=== PATIENT | female | born 1980 | race Caucasian/White ===

== ENCOUNTER 2017-01-18 03:59 | Emergency (ER) | payer OTHER ==
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
[2017-01-18 04:14] LABS: ABSOLUTE EOSINOPHILS # (AUTO) 0.2 10^3/uL (0.0-0.6); ABSOLUTE LYMPHOCYTES (AUTO) 3.2 10^3/uL (0.5-4.7); ABSOLUTE MONOCYTES (AUTO) 0.6 10^3/uL (0.1-1.4); ABSOLUTE NEUT (AUTO) 6.3 10^3/uL (1.7-8.2); BASOPHILS % (AUTO) 0.4 % (0-2); EOSINOPHILS % (AUTO) 2.2 % (0-6); HEMATOCRIT 33.2 % (36.0-47.0); HEMOGLOBIN 11.6 g/dL (12.0-15.5); HGB HCT DIFFERENCE 1.6; LYMPHOCYTES % (AUTO) 30.6 % (13-45); MEAN CORPUSCULAR HEMOGLOBIN 29.6 pg (27.0-33.4); MEAN CORPUSCULAR HGB CONC 34.9 g/dL (32.0-36.0); MEAN CORPUSCULAR VOLUME 85 fl (80-97); MONOCYTES % (AUTO) 5.8 % (3-13); RED CELL DISTRIBUTION WIDTH 17.2 % (11.5-14.0); WHITE BLOOD COUNT 10.3 10^3/uL (4.0-10.5)
[2017-01-18 04:18] LABS: APPEARANCE,URINE SLIGHTLY-CLOUDY; BILIRUBIN,URINE NEGATIVE (NEGATIVE); GLUCOSE, URINE NEGATIVE (NEGATIVE); KETONES,URINE NEGATIVE (NEGATIVE); LEUKOCYTE ESTERASE,URINE TRACE (NEGATIVE); NITRITE,URINE NEGATIVE (NEGATIVE); PROTEIN,URINE NEGATIVE (NEGATIVE); URINE SPECIFIC GRAVITY 1.008; UROBILINOGEN,URINE NEGATIVE mg/dL (<2.0)
[2017-01-18 04:32] LABS: URINE BARBITURATES SCREEN NEGATIVE; URINE METHADONE SCREEN NEGATIVE; URINE OPIATES LOW NEGATIVE; URINE PHENCYCLIDINE SCREEN NEGATIVE
[2017-01-18 04:40] LABS: ALANINE AMINOTRANSFERASE 26 U/L (9-52); ALKALINE PHOSPHATASE 65 U/L (38-126); ANION GAP 15 (5-19); ASPARTATE AMINO TRANSFERASE 21 U/L (14-36); BILIRUBIN,DIRECT 0.5 mg/dL (0.0-0.4); BILIRUBIN,TOTAL 0.5 mg/dL (0.2-1.3); BLOOD UREA NITROGEN 11 mg/dL (7-20); CALCIUM 9.7 mg/dL (8.4-10.2); CARBON DIOXIDE 19 mmol/L (22-30); CHLORIDE 108 mmol/L (98-107); CREATININE RESULT 0.68 mg/dL (0.52-1.25); GLUCOSE 78 mg/dL (75-110); POTASSIUM 4.2 mmol/L (3.6-5.0); SODIUM 142.3 mmol/L (137-145)
[2017-01-18 04:44] LABS: ALCOHOL < 10 mg/dL (NONE DETECTED)
--- NOTE | 2017-01-18 09:41 | ER Document Report ---
Doctor's Note Notes: 01/18/17 09:40 The patient is currently calm and ambulating around outside her room and on the phone. She is not in any distress at this time. Her vital signs have been stable and her labs were relatively good. She has no symptoms of UTI. We are awaiting psychiatric evaluation.
[2017-01-18 12:57] VITALS: BP 127/81
--- NOTE | 2017-01-18 15:38 | EKG REPORT ---
SEVERITY:- ABNORMAL ECG - SINUS RHYTHM INCOMPLETE RIGHT BUNDLE BRANCH BLOCK : Confirmed by: Bernard Macedo 18-Jan-2017 15:37:13
== END 2017-01-18 12:57 | disposition home or self-care (01) ==
LOC: ER 03:59
DX: F14.90 Cocaine use, unspecified, uncomplicated (principal); F15.10 Other stimulant abuse, uncomplicated; F31.9 Bipolar disorder, unspecified; F12.90 Cannabis use, unspecified, uncomplicated; F17.200 Nicotine dependence, unspecified, uncomplicated
CPT/HCPCS: 36415; 80053; 80307; 81001; 84703; 85025; 93005; 93010; 99284

== ENCOUNTER 2017-02-18 10:57 | Inpatient (IN) | payer OTHER ==
[2017-02-18] MEDS ORDERED: ETOMIDATE INJ/PF 20 MG/10 ML SDV IV ONE (11:15)
[2017-02-18] MEDS ORDERED: ROCURONIUM BROMIDE INJ 50 MG/5 ML VIAL IV ONE ×2 (11:15→15:41)
[2017-02-18 11:18] LABS: ABSOLUTE LYMPHOCYTES (AUTO) 2.2 10^3/uL (0.5-4.7); ABSOLUTE MONOCYTES (AUTO) 0.5 10^3/uL (0.1-1.4); ABSOLUTE NEUT (AUTO) 10.5 10^3/uL (1.7-8.2); BASOPHILS % (AUTO) 0.3 % (0-2); EOSINOPHILS % (AUTO) 0.1 % (0-6); HEMATOCRIT 38.1 % (36.0-47.0); HEMOGLOBIN 12.9 g/dL (12.0-15.5); HGB HCT DIFFERENCE 0.6; LYMPHOCYTES % (AUTO) 16.5 % (13-45); MEAN CORPUSCULAR HEMOGLOBIN 29.2 pg (27.0-33.4); MEAN CORPUSCULAR HGB CONC 33.8 g/dL (32.0-36.0); MEAN CORPUSCULAR VOLUME 86 fl (80-97); MONOCYTES % (AUTO) 3.4 % (3-13); RED BLOOD COUNT 4.42 10^6/uL (3.72-5.28); SEGMENTED NEUTROPHILS % (AUTO) 79.7 % (42-78); WHITE BLOOD COUNT 13.1 10^3/uL (4.0-10.5)
[2017-02-18] MEDS ORDERED: PROPOFOL 100 ML IV ONE ×2 (11:30→12:41)
--- NOTE | 2017-02-18 11:38 | RADIOLOGY REPORT (SQ) ---
EXAM DESCRIPTION: CHEST SINGLE VIEW COMPLETED DATE/TIME: 02/18/2017 11:27 am REASON FOR STUDY: intubated COMPARISON: 05/19/2015 NUMBER OF VIEWS: One view. TECHNIQUE: Single frontal radiographic image of the chest acquired. LIMITATIONS: Overlying support apparatus. FINDINGS: LUNGS AND PLEURA: Small left pleural effusion. No pneumothorax. MEDIASTINUM AND HEART: Within normal limits. SUPPORT DEVICES: Endotracheal tube tip between thoracic inlet and joseph. Nasogastric tube coiled in the stomach. BONY STRUCTURES: No acute findings. HARDWARE: None. OTHER: No other significant finding. IMPRESSION: Good position of support apparatus. No pneumothorax.
[2017-02-18 11:39] LABS: ALANINE AMINOTRANSFERASE 26 U/L (9-52); ALBUMIN 4.5 g/dL (3.5-5.0); ALKALINE PHOSPHATASE 92 U/L (38-126); ANION GAP 16 (5-19); ASPARTATE AMINO TRANSFERASE 25 U/L (14-36); BILIRUBIN,DIRECT 0.5 mg/dL (0.0-0.4); BILIRUBIN,TOTAL 0.6 mg/dL (0.2-1.3); BLOOD UREA NITROGEN 15 mg/dL (7-20); CALCIUM 9.8 mg/dL (8.4-10.2); CARBON DIOXIDE 17 mmol/L (22-30); CHLORIDE 108 mmol/L (98-107); CREATINE KINASE 96 U/L (30-135); CREATININE RESULT 0.84 mg/dL (0.52-1.25); GLUCOSE 203 mg/dL (75-110); SODIUM 141.3 mmol/L (137-145); TOTAL PROTEIN 8.1 g/dL (6.3-8.2)
[2017-02-18 11:48] LABS: APPEARANCE,URINE SLIGHTLY-CLOUDY; BILIRUBIN,URINE NEGATIVE (NEGATIVE); GLUCOSE, URINE 50 mg/dL (NEGATIVE); KETONES,URINE 20 mg/dL (NEGATIVE); LEUKOCYTE ESTERASE,URINE NEGATIVE (NEGATIVE); NITRITE,URINE POSITIVE (NEGATIVE); PROTEIN,URINE NEGATIVE (NEGATIVE); URINE SPECIFIC GRAVITY 1.023
[2017-02-18 11:49] LABS: CREATINE KINASE MB 1.21 ng/mL (<4.55); TROPONIN I < 0.012 ng/mL
[2017-02-18 12:02] LABS: BACTERIA,URINE 4+ /HPF; RBC,URINE 0-1 /HPF
[2017-02-18 12:05] LABS: ARTERIAL BLOOD BASE EXCESS -4.3 mmol/L; ARTERIAL BLOOD O2 SATURATION 85.8 % (94-98)
[2017-02-18 12:08] LABS: URINE BARBITURATES SCREEN NEGATIVE; URINE METHADONE SCREEN NEGATIVE; URINE OPIATES LOW NEGATIVE; URINE PHENCYCLIDINE SCREEN NEGATIVE
[2017-02-18 12:14] LABS: ALCOHOL < 10 mg/dL (NONE DETECTED)
[2017-02-18] MEDS ORDERED: ACETAMINOPHEN 650 MG SUPP.RECT PR PRN (12:17)
[2017-02-18] MEDS ORDERED: LEVALBUTEROL HCL NEB 1.25 MG/3 ML AMPUL NEB PRN (12:17)
[2017-02-18] MEDS ORDERED: NORMAL SALINE 1000 ML 1,000 ML IV PRN (12:17)
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
[2017-02-18] MEDS ORDERED: MIDAZOLAM HCL 100 ML IV PRN (12:26)
[2017-02-18] MEDS ORDERED: PHARMACY COMMUNICATION ORDER MC NR (12:30)
[2017-02-18] MEDS: POTASSI CL 20 MEQ/50 ML RIDER 20 MEQ/50 ML RTUPB IV SCH ×2 (12:40→15:26)
[2017-02-18] MEDS ORDERED: FENTANYL CITRATE INJ/PF 100 MCG/2 ML AMPUL IV PRN (12:46)
[2017-02-18] MEDS ORDERED: ATROPINE SULFATE INJ 1 MG/1 ML VIAL IV PRN ×2 (12:46→14:33)
[2017-02-18] MEDS ORDERED: MIDAZOLAM 2 MG/2 ML INJ ONE (12:56)
--- NOTE | 2017-02-18 13:02 | EKG REPORT ---
SEVERITY:- ABNORMAL ECG - SINUS TACHYCARDIA IVCD, NONSPECIFIC : Confirmed by: Bernard Macedo 18-Feb-2017 13:02:25
[2017-02-18] MEDS ORDERED: MIDAZOLAM 2 MG/2 ML INJ IV ONE (13:24)
[2017-02-18] MEDS ORDERED: ATROPINE SULFATE INJ 1 MG/1 ML VIAL IV ONE (13:27)
[2017-02-18] MEDS ORDERED: IPRATROPIUM BROMIDE 0.02% NEB 0.5 MG/2.5 ML AMPUL NEB ONE ×2 (13:30→14:15)
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
[2017-02-18] MEDS ORDERED: GLUCAGON,HUMAN RECOMB 1 MG INJ IM PRN (13:42)
[2017-02-18] MEDS ORDERED: DEXTROSE 40% GEL 15 GM TUBE PO PRN ×2 (13:42)
[2017-02-18] MEDS ORDERED: DEXTROSE 50%-WATER 25 GM/50 ML DISP.SYRIN IV PRN ×2 (13:42)
[2017-02-18] MEDS ORDERED: NORMAL SALINE 1000 ML 1,000 ML IV ONE (13:55)
[2017-02-18] MEDS ORDERED: HEPARIN SOD (PORCINE) 5,000 UNIT/ML 1 ML SYRINGE SUBCUT SCH (14:00)
[2017-02-18] MEDS: LORAZEPAM INJ 2 MG/1 ML VIAL IV PRN ×2 (14:16→16:36)
--- NOTE | 2017-02-18 14:20 | RADIOLOGY REPORT (SQ) ---
EXAM DESCRIPTION: KUB/ABDOMEN (SINGLE VIEW) COMPLETED DATE/TIME: 02/18/2017 1:01 pm REASON FOR STUDY: Check Placement of NG Tube COMPARISON: None. NUMBER OF VIEWS: One view. TECHNIQUE: Supine radiographic image of the abdomen acquired. LIMITATIONS: None. FINDINGS: There is a nasogastric tube present, with the tip in the stomach fundus. Lap band prosthesis at the GE junction. BOWEL GAS PATTERN: Normal bowel gas pattern. No dilated loops. Large amount of stool in the rectosig moid. CALCIFICATIONS: No suspicious calcifications. SOFT TISSUES: No gross mass or suggestion of organomegaly. HARDWARE: As above. Deshpande catheter in the bladder. BONES: No acute fracture. No worrisome bone lesions. OTHER: No other significant finding. IMPRESSION: Large amount of stool in the rectosigmoid. Otherwise unremarkable bowel gas pattern. Nasogastric tube tip and side port in the stomach fundus. Lap band prosthesis GE junction. Deshpande catheter in the bladder. TECHNICAL DOCUMENTATION: JOB ID: [id number] [employer]- All Rights Reserved
[2017-02-18 15:08] LABS: ARTERIAL BLOOD BASE EXCESS -2.7 mmol/L; ARTERIAL BLOOD O2 SATURATION 99.6 % (94-98)
[2017-02-18] MEDS ORDERED: NORMAL SALINE IV PRN ×2 (15:17→17:31)
[2017-02-18] MEDS ORDERED: [UNRECOGNIZED DRUG - OTHER] IV PRN (15:17)
[2017-02-18] MEDS ORDERED: POTASSIUM CHLORIDE 20 MEQ/15 ML UDCUP ONE (15:22)
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
--- NOTE | 2017-02-18 15:45 | PDOC TRANSFER SUMMARY ---
General Admission Date/PCP: 02/18/17 12:17 Admission Date: 02/18/17 Transfer Date: 02/18/17 Accepting Facility: [facility] Accepting Physician: Dr. Chapman Resuscitation Status: Do Not Resuscitate - Transfer Diagnosis (1) Poisoning by organophosphate Is this a current diagnosis for this admission?: Yes (2) Toxic effect of organophosphate and carbamate Is this a current diagnosis for this admission?: Yes (3) Respiratory failure Is this a current diagnosis for this admission?: Yes (4) Suicide attempt Is this a current diagnosis for this admission?: Yes (5) Encephalopathy Is this a current diagnosis for this admission?: Yes (6) Foot drop, left Is this a current diagnosis for this admission?: Yes (7) SIRS (systemic inflammatory response syndrome) Is this a current diagnosis for this admission?: Yes (8) Cocaine abuse Is this a current diagnosis for this admission?: Yes (9) Marijuana abuse Is this a current diagnosis for this admission?: Yes (10) Tobacco abuse Is this a current diagnosis for this admission?: Yes (11) Obesity (BMI 30.0-34.9) Is this a current diagnosis for this admission?: Yes (12) Status post gastric lap band Is this a current diagnosis for this admission?: Yes (13) Hypokalemia Is this a current diagnosis for this admission?: Yes (14) DVT prophylaxis Is this a current diagnosis for this admission?: Yes (15) GI prophylaxis Is this a current diagnosis for this admission?: Yes - Transfer Medications Home Medications: Dextroamphetamine/Amphetamine [Adderall XR 20 mg Capsule] 1 mg PO DAILY Lorazepam [Lorazepam] 1 mg PO PRN PRN 04/21/16 Quetiapine Fumarate [Seroquel Xr] 400 mg PO DAILY 04/21/16 Transfer Medications: Current Medications Acetaminophen (Tylenol 650 Mg Supp) 650 mg KS Q4HP PRN PRN Reason: PAIN/FEVER Stop: 03/20/17 12:16 Atropine Sulfate (Atropine Inj 1 Mg/1 Ml Vial) 1 mg IV Q5MP PRN PRN Reason: secretions Stop: 03/20/17 14:31 Dextrose (Dextrose Inj 50% Syringe (25 Gm/50 Ml)) 12.5 gm IV PRN PRN; Protocol PRN Reason: FOR BG 50-69 IN ALERT PATIENT Stop: 03/20/17 13:41 Dextrose (Dextrose Inj 50% Syringe (25 Gm/50 Ml)) 25 gm IV PRN PRN PRN Reason: Protocol Stop: 03/20/17 13:41 Diazepam (Valium 5 Mg Tablet) 10 mg NG Q6 ERICH Stop: 02/25/17 17:59 Fentanyl Citrate (Sublimaze Inj/Pf 100 Mcg/2 Ml Ampule) 50 mcg IV Q4HP PRN Stop: 02/25/17 12:45 Last Admin: 02/18/17 14:17 Dose: 50 mcg Glucagon (Glucagen Inj 1 Mg Vial) 1 mg IM PRN PRN; Protocol PRN Reason: Evaluate for BG < 70 Stop: 03/20/17 13:41 Glucose (Glutose 40% Gel 15 Gm Tube) 15 gm PO PRN PRN; Protocol PRN Reason: FOR BG 50-69 IN ALERT PATIENT Stop: 03/20/17 13:41 Glucose (Glutose 40% Gel 15 Gm Tube) 30 gm PO PRN PRN; Protocol PRN Reason: FOR BG < 50 IN ALERT PATIENT Stop: 03/20/17 13:41 Heparin Sodium (Porcine) (Heparin Inj 5,000 Units/Ml 1 Ml Syringe) 5,000 unit SUBCUT Q8 [facility] Stop: 03/20/17 13:59 Last Admin: 02/18/17 15:27 Dose: 5,000 unit Potassium Chloride/Water (Potassium Chloride Jay 20 Meq/50 Ml) 20 meq in 50 mls @ 25 mls/hr IV Q2H [facility] Stop: 02/18/17 16:08 Last Admin: 02/18/17 15:26 Dose: 50 ml Sodium Chloride (Nacl 0.9% 1000 Ml Iv Soln) 1,000 mls @ 150 mls/hr IV CONTINUOUS PRN PRN Reason: THIS MED IS NOT "PRN" Stop: 03/20/17 12:16 Last Admin: 02/18/17 15:28 Dose: 1,000 ml Propofol (Diprivan Rtu 1000 Mg/100 Ml Inf.Bottle) 100 mls @ 0 mls/hr IV CONTINUOUS PRN; Protocol; Titrate PRN Reason: THIS MED IS NOT "PRN" Stop: 03/20/17 12:24 Midazolam HCl (Versed Rtu 50 Mg/100 Ml Premix Bag) 100 mls @ 0 mls/hr IV CONTINUOUS PRN; Protocol; Titrate PRN Reason: THIS MED IS NOT "PRN" Stop: 02/25/17 12:25 Last Admin: 02/18/17 14:17 Dose: 100 ml Pralidoxime Chloride 1.5 gm/ (Sodium Chloride) 100 mls @ 300 mls/hr IV NOW ONE Stop: 02/18/17 16:19 Pralidoxime Chloride 4,500 gm/ (Sodium Chloride) 250 mls @ 72 mls/hr IV .CONTINOUS PRN PRN Reason: THIS MED IS NOT "PRN" Stop: 03/20/17 15:16 Ipratropium Rule (Atrovent 0.02% Neb 0.5 Mg/2.5 Ml Ampul) 0.5 mg NEB RTQ6 ERICH Stop: 03/20/17 17:59 Lansoprazole (Prevacid 15 Mg Odt Tablet) 15 mg NG BID@0600,1700 [facility] Stop: 03/20/17 16:59 Levalbuterol HCl (Xopenex Neb 1.25 Mg/3 Ml Ampul) 1.25 mg NEB RTQ2HP PRN Stop: 03/20/17 12:16 Last Admin: 02/18/17 14:13 Dose: 1.25 mg Lorazepam (Ativan Inj 2 Mg/1 Ml Vial) 2 mg IV Q2HP PRN PRN Reason: anxiety, seizure Stop: 02/25/17 12:43 Last Admin: 02/18/17 14:16 Dose: 2 mg Pharmacy Profile Note (Medication Communication Order) 1 each .NOTICE NR Stop: 03/20/17 12:29 Sodium Chloride (Saline Flush 2.5 Ml Monoject Prefil Syrin) 2.5 ml IV Q8 [facility] Stop: 03/20/17 13:59 Last Admin: 02/18/17 15:25 Dose: 2.5 ml - Allergies Allergies/Adverse Reactions: amoxicillin trihydrate [From Augmentin] Allergy (Intermediate, Verified 04:49) Potassium Clavulanate * [From Augmentin] Allergy (Intermediate, Verified 04:49) Hospital Course Hospital Course: Patient is a 36yo CF with a hx of polysubstance abuse and prior suicide attempt , apparently self ingested Temik. Given atropine by EMS. Patient found to have anticholinergic side effects and uneven respirations and intubated in the ED with Etomidate and Rocuronium. Patient admitted to hospitalist service. Patient found to have facial fasciculations and increased lacrimation and drooling as well as airway secretions. Patient started on 2-MALIKA and atropine. Patient IVC'd for safety. Correcting electrolytes and pending recheck. Unfortunately, we do not have enough 2-MALIKA in house to support patient on a continuous infusion after loading dose. Patient accepted to [facility]. Appreciate their help. Physical Exam Vital Signs: Temp Pulse Resp BP Pulse Ox 94.1 F L 116 H 18 169/106 H 96 02/18/17 12:13 02/18/17 14:20 02/18/17 14:20 02/18/17 12:05 02/18/17 13:55 General appearance: PRESENT: well-developed, well-nourished, other - intubated Head exam: PRESENT: atraumatic, normocephalic Eye exam: PRESENT: conjunctiva pink, EOMI, PERRLA - meiosis. ABSENT: scleral icterus Ear exam: PRESENT: normal external ear exam Mouth exam: PRESENT: moist, tongue midline Neck exam: ABSENT: JVD, lymphadenopathy, thyromegaly, tracheal deviation Respiratory exam: PRESENT: clear to auscultation [place], unlabored. ABSENT: rales , rhonchi, wheezes Cardiovascular exam: PRESENT: RRR, +S1, +S2, tachycardia. ABSENT: diastolic murmur, rubs, systolic murmur Pulses: PRESENT: normal dorsalis pedis pul Vascular exam: PRESENT: normal capillary refill GI/Abdominal exam: PRESENT: hyperactive bowel sounds, soft. ABSENT: distended, guarding, mass, Mendoza's sign, organolmegaly, rebound, tenderness Rectal exam: PRESENT: deferred Extremities exam: PRESENT: full ROM. ABSENT: calf tenderness, clubbing, pedal edema Neurological exam: PRESENT: other - intubated and sedated Psychiatric exam: PRESENT: other - intubated and sedated Skin exam: PRESENT: dry, intact, warm. ABSENT: cyanosis, rash Results Laboratory Results: 02/18/17 02/18/17 02/18/17 14:43 14:52 14:52 Carbonic Acid 0.98 L HCO3/H2CO3 Ratio 21:1 ABG pH 7.43 ABG pCO2 32.4 L ABG pO2 253.9 H ABG HCO3 20.9 ABG O2 Saturation 99.6 H ABG Base Excess -2.7 FiO2 65% Phosphorus 3.1 Magnesium 1.9 Impressions: Chest X-Ray 02/18/17 11:13 IMPRESSION: Good position of support apparatus. No pneumothorax. KUB X-Ray 02/18/17 12:18 IMPRESSION: Large amount of stool in the rectosigmoid. Otherwise unremarkable bowel gas pattern. Nasogastric tube tip and side port in the stomach fundus. Lap band prosthesis GE junction. Deshpaned catheter in the bladder. Plan Time Spent: Greater than 30 Minutes
[2017-02-18] MEDS ORDERED: [UNRECOGNIZED DRUG - OTHER] IV ONE (16:00)
[2017-02-18] MEDS ORDERED: NORMAL SALINE IV ONE (16:00)
[2017-02-18] MEDS: PROPOFOL 100 ML IV PRN ×2 (16:01→17:10)
[2017-02-18 16:53] LABS: ANION GAP 10 (5-19); BLOOD UREA NITROGEN 16 mg/dL (7-20); CALCIUM 8.7 mg/dL (8.4-10.2); CARBON DIOXIDE 19 mmol/L (22-30); CHLORIDE 112 mmol/L (98-107); CREATINE KINASE 69 U/L (30-135); CREATININE RESULT 0.64 mg/dL (0.52-1.25); GLUCOSE 94 mg/dL (75-110); POTASSIUM 3.7 mmol/L (3.6-5.0)
[2017-02-18] MEDS ORDERED: LANSOPRAZOLE 15 MG TAB.RAP.DR NG SCH (17:00)
[2017-02-18 17:09] LABS: TROPONIN I < 0.012 ng/mL
[2017-02-18 17:14] VITALS: BP 148/89
[2017-02-18] MEDS ORDERED: [UNRECOGNIZED DRUG - OTHER] IV PRN (17:31)
[2017-02-18] MEDS ORDERED: IPRATROPIUM BROMIDE 0.02% NEB 0.5 MG/2.5 ML AMPUL NEB SCH ×2 (18:00→20:00)
[2017-02-18] MEDS ORDERED: DIAZEPAM 5 MG TABLET NG SCH ×2 (18:00)
--- NOTE | 2017-02-19 14:29 | PDOC CONSULTATION ---
Consultation Consult Date: 02/19/17 Attending physician:: CANDE BEGMU Consult reason:: resp failure/posioning-drug od History of Present Illness Admission Date/PCP: 02/18/17 12:41 History of Present Illness: RHETT John AVENDANO is a 36 year old female 36-year-old female presented to the emergency room obtunded and unresponsive subsequently intubated unable to protect airway she has had multiple presentations for suicide attempts and suicidal ideation however this time she was reported to take a bottle of rat poison (that was not Coumadin). She is currently intubated and sedated and not arousable no rash or purpura noted is a history of smoking but the amount of which I cannot document at this time. Past Medical History Pulmonary Medical History: Reports: Chronic Obstructive Pulmonary Disease (COPD) , Pneumonia Psychiatric Medical History: Reports: Attention Deficit Hyperactivity Disorder, Bipolar Disorder, Depression, Substance Abuse, Tobacco Dependency Past Surgical History Past Surgical History: Reports: Orthopedic Surgery - kimberlyn in left foot Social History Information Source: [facility] Records Lives with: Spouse/Significant other Smoking Status: Unknown if Ever Smoked Drugs: Cocaine Family History Family History: Hyperlipidemia, Malignancy Parental Family History Reviewed: No Children Family History Reviewed: No Sibling(s) Family History Reviewed.: No Medication/Allergy Home Medications: Dextroamphetamine/Amphetamine [Adderall XR 20 mg Capsule] 1 mg PO DAILY Lorazepam [Lorazepam] 1 mg PO PRN PRN 04/21/16 Quetiapine Fumarate [Seroquel Xr] 400 mg PO DAILY 04/21/16 Allergies/Adverse Reactions: amoxicillin trihydrate [From Augmentin] Allergy (Intermediate, Verified 04:49) Potassium Clavulanate * [From Augmentin] Allergy (Intermediate, Verified 04:49) Review of Systems ROS unobtainable: Due to endotracheal tube Physical Exam Vital Signs: Temp Pulse Resp BP Pulse Ox 94.1 F L 13 169/106 H 93 02/18/17 12:13 02/18/17 12:05 02/18/17 12:05 02/18/17 12:05 General appearance: PRESENT: no acute distress, disheveled, well-developed, well -nourished Head exam: PRESENT: atraumatic, normocephalic Eye exam: PRESENT: conjunctiva pale Mouth exam: PRESENT: dry mucosa, neck supple, tongue midline, other - 7.5 ET tube placed 22 inches at the lip Neck exam: ABSENT: carotid bruit, JVD, lymphadenopathy, thyromegaly Respiratory exam: PRESENT: decreased breath sounds, prolonged expiratory phas, rhonchi, symmetrical, unlabored. ABSENT: crackles, rales, retraction, stridor, tachypnea, wheezes Cardiovascular exam: PRESENT: RRR, +S1, +S2. ABSENT: systolic murmur Pulses: PRESENT: normal radial pulses GI/Abdominal exam: PRESENT: normal bowel sounds, soft. ABSENT: distended, guarding, mass, organolmegaly, rebound, tenderness Torso Front/Back Image: 1 - 2cmx1.5cmx0.5cm crater Rectal exam: PRESENT: deferred, other Gentrourinary exam: PRESENT: indwelling catheter Musculoskeletal exam: PRESENT: normal inspection Neurological exam: ABSENT: alert, awake, oriented to person, oriented to place, oriented to time, oriented to situation Skin exam: PRESENT: dry, warm Results Impressions: Chest X-Ray 02/18/17 11:13 IMPRESSION: Good position of support apparatus. No pneumothorax. Assessment & Plan - Diagnosis (1) Poisoning by organophosphate Qualifiers: Encounter type: initial encounter Injury intent: intentional self-harm Qualified Code(s): T60.0X2A - Toxic effect of organophosphate and carbamate insecticides, intentional self-harm, initial encounter Is this a current diagnosis for this admission?: Yes Plan: to center for treatment([facility]) (2) Respiratory failure Qualifiers: Chronicity: acute Is this a current diagnosis for this admission?: Yes Plan: hypoxic/with metabolic acdosis (3) Tobacco abuse Is this a current diagnosis for this admission?: Yes - Time Critical Time spent with patient: 35 or more minutes - 55 min
== END 2017-02-18 17:31 | disposition short-term general hospital (02) | DRG 208 ==
LOC: ER 10:57 → ICU 12:17 → EH 12:41 → UNDOADMIN 12:41 → ICU 13:30 → EH 13:30
PROVIDERS: ADMIT Family Medicine; ATTEND Family Medicine
PROC: 0BH17EZ Insertion of Endotracheal Airway into Trachea, Via Natural or Artificial Opening (ICD-10-PCS; principal; 2017-02-18)
PROC: 5A1935Z Respiratory Ventilation, Less than 24 Consecutive Hours (ICD-10-PCS; 2017-02-18)
DX: J96.00 Acute respiratory failure, unspecified whether with hypoxia or hypercapnia (principal); G92 Toxic encephalopathy; T60.0X2A Toxic effect of organophosphate and carbamate insecticides, intentional self-harm, initial encounter; Z66 Do not resuscitate; E87.6 Hypokalemia; F32.9 Major depressive disorder, single episode, unspecified; F90.9 Attention-deficit hyperactivity disorder, unspecified type; J44.9 Chronic obstructive pulmonary disease, unspecified; E66.9 Obesity, unspecified; R25.3 Fasciculation; M21.372 Foot drop, left foot; F14.10 Cocaine abuse, uncomplicated; F12.10 Cannabis abuse, uncomplicated; F17.210 Nicotine dependence, cigarettes, uncomplicated; Y92.9 Unspecified place or not applicable; Z68.31 Body mass index [BMI] 31.0-31.9, adult; Z75.1 Person awaiting admission to adequate facility elsewhere
CPT/HCPCS: 36415; 71010; 74000; 80048; 80053; 80307; 81001; 81025; 82550; 82553; 82803; 83036; 83735; 84100; 84484; 85025; 87040; 87086; 87088; 87186; 93005; 93010; 94002; 99291; 99292; J0461; J1644; J2060; J2250; J2704; J2730; J3010; J3480; J3490; J7030; J7050

== ENCOUNTER 2018-03-21 22:35 | Emergency (ER) | payer OTHER, MEDICAID ==
[2018-03-21 23:30] LABS: ABSOLUTE EOSINOPHILS # (AUTO) 0.1 10^3/uL (0.0-0.6); ABSOLUTE LYMPHOCYTES (AUTO) 2.3 10^3/uL (0.5-4.7); ABSOLUTE MONOCYTES (AUTO) 0.6 10^3/uL (0.1-1.4); ABSOLUTE NEUT (AUTO) 4.3 10^3/uL (1.7-8.2); BASOPHILS % (AUTO) 0.5 % (0-2); EOSINOPHILS % (AUTO) 0.8 % (0-6); HEMATOCRIT 38.1 % (36.0-47.0); HEMOGLOBIN 12.8 g/dL (12.0-15.5); LYMPHOCYTES % (AUTO) 31.2 % (13-45); MEAN CORPUSCULAR HEMOGLOBIN 30.1 pg (27.0-33.4); MEAN CORPUSCULAR HGB CONC 33.7 g/dL (32.0-36.0); MEAN CORPUSCULAR VOLUME 89 fl (80-97); MONOCYTES % (AUTO) 8.8 % (3-13); PLATELET COUNT 260 10^3/uL (150-450); RED BLOOD COUNT 4.27 10^6/uL (3.72-5.28); RED CELL DISTRIBUTION WIDTH 16.8 % (11.5-14.0); SEGMENTED NEUTROPHILS % (AUTO) 58.7 % (42-78); TOTAL CELLS COUNTED % (AUTO) 100 %; WHITE BLOOD COUNT 7.3 10^3/uL (4.0-10.5)
[2018-03-21 23:49] LABS: ALANINE AMINOTRANSFERASE 14 U/L (9-52); ALBUMIN 4.4 g/dL (3.5-5.0); ALKALINE PHOSPHATASE 70 U/L (38-126); ANION GAP 16 (5-19); ASPARTATE AMINO TRANSFERASE 22 U/L (14-36); BILIRUBIN,DIRECT 0.3 mg/dL (0.0-0.4); BILIRUBIN,TOTAL 0.5 mg/dL (0.2-1.3); BLOOD UREA NITROGEN 10 mg/dL (7-20); CALCIUM 9.6 mg/dL (8.4-10.2); CARBON DIOXIDE 23 mmol/L (22-30); CHLORIDE 105 mmol/L (98-107); GLUCOSE 115 mg/dL (75-110); POTASSIUM 4.4 mmol/L (3.6-5.0); SODIUM 143.8 mmol/L (137-145); TOTAL PROTEIN 7.6 g/dL (6.3-8.2)
[2018-03-21 23:51] LABS: ACETAMINOPHEN < 10 ug/mL (10-30); ALCOHOL < 10 mg/dL (NONE DETECTED); SALICYLATE < 1.0 mg/dL (2.0-20.0)
--- NOTE | 2018-03-22 01:10 | RADIOLOGY REPORT (SQ) ---
EXAM DESCRIPTION: CT HEAD WITHOUT IV CONTRAST COMPLETED DATE/TME: 03/21/2018 23:15 CLINICAL HISTORY: 37 years, Female, AMS COMPARISON: Prior CT brain 05/19/2015 TECHNIQUE: 199 Images stored on PACS. All CT scanners at this facility use dose modulation, iterative reconstruction, and/or weight based dosing when appropriate to reduce radiation dose to as low as reasonably achievable (ALARA). [facility]: Dose Right [facility]: CareDose [facility]: Dose Right [facility]: Teradose 4D [facility]: [employer] LIMITATIONS: None. FINDINGS: The globes are intact. The paranasal sinuses and mastoid air cells are unremarkable. No displaced or depressed skull fracture. No intra or extra-axial hemorrhage. CT is limited for evaluation of acute infarct. No CT evidence for large or territorial acute infarct. No mass or midline shift. IMPRESSION: Negative exam TECHNICAL DOCUMENTATION: Quality ID # [id number]: Final reports with documentation of one or more dose reduction techniques (e.g., Automated exposure control, adjustment of the mA and/or kV according to patient size, use of iterative reconstruction technique) 2010 [employer]- All Rights Reserved
--- NOTE | 2018-03-22 02:42 | ER Document Report ---
ED General - General Chief Complaint: Probable Seizure Stated Complaint: ALTERED MENTAL STATUS Time Seen by Provider: 03/21/18 23:08 Notes: Patient is a 37-year-old female who is brought in by ambulance due to being found poorly responsive and then was very combative and a months requiring for sedation. Upon my evaluation the patient she is absolutely somnolent from the medication. She is able to talk some. She says that she feels fine and wants to be left alone. She denies any wanting to hurt herself. She will not tell me what potential drug she took. Per medics reported concern of alcohol use. Personal Property Appraiser reports that she also did cocaine. Patient herself cannot tell me what she took. Patient denies any pain at this time and has no further concerns. TRAVEL OUTSIDE OF THE [place] IN LAST 30 DAYS: No - Related Data Allergies/Adverse Reactions: amoxicillin trihydrate [From Augmentin] Allergy (Intermediate, Verified 04:49) Potassium Clavulanate * [From Augmentin] Allergy (Intermediate, Verified 04:49) Past Medical History - Social History Smoking Status: Current Every Day Smoker Chew tobacco use (# tins/day): No Frequency of alcohol use: Heavy Drug Abuse: Cocaine, Marijuana Family History: Hyperlipidemia, Malignancy Patient has suicidal ideation: No Patient has homicidal ideation: No Pulmonary Medical History: Reports: Hx COPD, Hx Pneumonia Renal/ Medical History: Reports: Hx Ovarian Cysts. Denies: Hx Peritoneal Dialysis Musculoskeletal Medical History: Reports Hx Musculoskeletal Deformity, Reports Hx Musculoskeletal Trauma Psychiatric Medical History: Reports: Hx Anxiety, Hx Attention Deficit Hyperactivity Disorder, Hx Bipolar Disorder, Hx Depression Traumatic Medical History: Reports: Hx Fractures, Hx Spine Fracture Past Surgical History: Reports: Hx Genitourinary Surgery - lap band 2009, Hx Orthopedic Surgery - kimberlyn in left foot - Immunizations Immunizations up to date: Yes Hx Diphtheria, Pertussis, Tetanus Vaccination: Yes - 2009 Review of Systems - Review of Systems Notes: My Normal Review Basic REVIEW OF SYSTEMS: CONSTITUTIONAL : Denies fever, chills, or sweats. Denies recent illness. EENT: Denies eye, ear, throat, or mouth pain or symptoms. Denies nasal or sinus congestion. CARDIOVASCULAR: Denies chest pain. RESPIRATORY: Denies cough, cold, or chest congestion. Denies shortness of breath, difficulty breathing, or wheezing. GASTROINTESTINAL: Denies abdominal pain. Denies nausea, vomiting, or diarrhe MUSCULOSKELETAL: Denies neck or back pain or joint pain or swelling. SKIN: Denies rash or skin lesions. NEUROLOGICAL: Poorly responsive by boyfriend. PSYCHIATRIC: Denies anxiety or stress or depression. ALL OTHER SYSTEMS REVIEWED AND NEGATIVE. Physical Exam - Vital signs Vitals: Temp Pulse Resp BP Pulse Ox 97.7 F 82 14 103/71 97 03/21/18 23:28 03/21/18 23:28 03/21/18 23:28 03/21/18 23:28 03/21/18 23:28 - Notes Notes: General Appearance: Well nourished, sleeping but easily arousable. When patient is awoken she does slur her words some but her speech is comfortable., no acute distress, no obvious discomfort. Vitals: reviewed, See vital signs table. Head: no swelling or tenderness to the head Eyes: PERRL, EOMI, Conjuctiva clear Mouth: No decreasd moisture Throat: No tonsillar inflammation, No airway obstruction, No lymphadenopathy Neck: Supple, no neck tenderness, no step-offs or deformities to palpation. Back: No tenderness palpation of thoracic or lumbar spine. No step-offs or deformities. Lungs: No wheezing, No rales, No rhonci, No accessory muscle use, good air exchange bilaterally. Heart: Normal rate, Regular rythm, No murmur, no rub Abdomen: Normal BS, soft, No rigidity, No abdominal tenderness, No guarding, no rebound, no abdominal masses, no organomegaly Extremities: strength 5/5 in all extremities, good pulses in all extremities, no swelling or tenderness in the extremities, no edema. Skin: warm, dry, appropriate color, no rash Neuro: speech is garbled, oriented x 2, somnolent affect, patient will answer some questions. Facial movements are symmetric. She does move all extremities on her own but her coordination is a little bit off likely due to intoxication. Course - Re-evaluation Re-evalutation: 03/22/18 02:42 I reevaluate the patient. She is currently sleeping but easily arousable. She says she feels well. I would let her continue to rest and sleep and will reevaluate her again later. 03/22/18 07:30 Patient is awake alert and eating breakfast. She says she feels well and wants to go home. She does not remember what happened last night. I informed her that she likely had a large amount of alcohol as well as possibly some other drugs. Patient says she does not member doing this but does not deny it is a possibility either. Patient has no further concerns and wants to be discharged home. Patient says she will call ride to come pick her up. Patient will be discharged home as she requests. Dictation of this chart was performed using voice recognition software; therefore, there may be some unintended grammatical errors. - Vital Signs Vital signs: Temp Pulse Resp BP Pulse Ox 97.2 F 80 18 124/78 99 03/22/18 04:32 03/22/18 04:32 03/22/18 04:32 03/22/18 04:32 03/22/18 04:32 - Laboratory Result Diagrams: 03/21/18 22:40 03/21/18 22:40 Laboratory results interpreted by me: 03/21/18 03/21/18 22:40 22:40 RDW 16.8 H Glucose 115 H Salicylates < 1.0 L Acetaminophen < 10 L
[2018-03-22 07:46] VITALS: BP 132/82
--- NOTE | 2018-03-22 12:40 | EKG REPORT ---
SEVERITY:- ABNORMAL ECG - SINUS RHYTHM RBBB AND LPFB : Confirmed by: Sabrina Finley MD 22-Mar-2018 12:39:14
== END 2018-03-22 07:49 | disposition home or self-care (01) ==
LOC: ER 22:35
DX: R41.82 Altered mental status, unspecified (principal); F17.200 Nicotine dependence, unspecified, uncomplicated; J44.9 Chronic obstructive pulmonary disease, unspecified; Z88.0 Allergy status to penicillin
CPT/HCPCS: 36415; 70450; 80053; 80307; 84703; 85025; 93005; 93010; 99285

== ENCOUNTER 2018-08-30 17:22 | Inpatient (IN) | payer OTHER, MEDICAID ==
[2018-08-30] MEDS ORDERED: NORMAL SALINE 1000 ML 1,000 ML IV ONE (17:35)
[2018-08-30 18:13] LABS: ABSOLUTE LYMPHOCYTES (AUTO) 0.9 10^3/uL (0.5-4.7); ABSOLUTE MONOCYTES (AUTO) 0.5 10^3/uL (0.1-1.4); ABSOLUTE NEUT (AUTO) 12.2 10^3/uL (1.7-8.2); BASOPHILS % (AUTO) 0.2 % (0-2); HEMATOCRIT 37.9 % (36.0-47.0); HEMOGLOBIN 12.7 g/dL (12.0-15.5); LYMPHOCYTES % (AUTO) 6.4 % (13-45); MEAN CORPUSCULAR HEMOGLOBIN 29.4 pg (27.0-33.4); MEAN CORPUSCULAR HGB CONC 33.4 g/dL (32.0-36.0); MEAN CORPUSCULAR VOLUME 88 fl (80-97); PLATELET COUNT 215 10^3/uL (150-450); SEGMENTED NEUTROPHILS % (AUTO) 89.4 % (42-78); TOTAL CELLS COUNTED % (AUTO) 100 %; WHITE BLOOD COUNT 13.6 10^3/uL (4.0-10.5)
[2018-08-30 18:22] LABS: APPEARANCE,URINE CLOUDY; BILIRUBIN,URINE NEGATIVE (NEGATIVE); GLUCOSE, URINE NEGATIVE (NEGATIVE); KETONES,URINE 20 mg/dL (NEGATIVE); LEUKOCYTE ESTERASE,URINE NEGATIVE (NEGATIVE); NITRITE,URINE POSITIVE (NEGATIVE); PROTEIN,URINE 30 mg/dL (NEGATIVE); UROBILINOGEN,URINE NEGATIVE mg/dL (<2.0)
[2018-08-30 18:23] LABS: COLOR,URINE YELLOW; INTERNATIONAL RATION (INR) 1.01; PROTHROMBIN TIME 13.8 SEC (11.4-15.4)
[2018-08-30 18:24] LABS: PARTIAL THROMBOPLASTIN TIME 32.1 SEC (23.5-35.8)
[2018-08-30 18:24] LABS: ARTERIAL BLOOD FIO2 ROOM AIR; ARTERIAL BLOOD H2CO3 0.92 mmol/L (1.05-1.35); ARTERIAL BLOOD HCO3 21.7 mmol/L (20-24); ARTERIAL BLOOD O2 SATURATION 96.1 % (94-98); ARTERIAL BLOOD PCO2 30.6 mmHg (35-45); ARTERIAL BLOOD PH 7.47 (7.35-7.45); ARTERIAL BLOOD PO2 76.1 mmHg (80-100); ARTERIAL BLOOD TOTAL CO2 22.7 mmol/L (21-25)
[2018-08-30 18:29] LABS: ALANINE AMINOTRANSFERASE 20 U/L (9-52); ALBUMIN 3.5 g/dL (3.5-5.0); ALKALINE PHOSPHATASE 61 U/L (38-126); ANION GAP 9 (5-19); ASPARTATE AMINO TRANSFERASE 18 U/L (14-36); BILIRUBIN,DIRECT 0.3 mg/dL (0.0-0.4); BILIRUBIN,TOTAL 0.4 mg/dL (0.2-1.3); BLOOD UREA NITROGEN 12 mg/dL (7-20); CALCIUM 9.1 mg/dL (8.4-10.2); CARBON DIOXIDE 21 mmol/L (22-30); CHLORIDE 107 mmol/L (98-107); CREATINE KINASE 74 U/L (30-135); GLUCOSE 103 mg/dL (75-110); POTASSIUM 3.7 mmol/L (3.6-5.0); SODIUM 137.2 mmol/L (137-145); TOTAL PROTEIN 6.5 g/dL (6.3-8.2)
[2018-08-30 18:31] LABS: ALCOHOL < 10 mg/dL (NONE DETECTED)
[2018-08-30 18:37] LABS: URINE AMPHETAMINES SCREEN NEGATIVE; URINE BARBITURATES SCREEN NEGATIVE; URINE BENZODIAZEPINES SCREEN NEGATIVE; URINE COCAINE SCREEN UNCONFIRMED POSITIVE; URINE MARIJUANA (THC) SCREEN UNCONFIRMED POSITIVE; URINE METHADONE SCREEN NEGATIVE; URINE PHENCYCLIDINE SCREEN NEGATIVE
[2018-08-30 18:40] LABS: CREATINE KINASE MB 0.91 ng/mL (<4.55)
[2018-08-30 18:41] LABS: TROPONIN I < 0.012 ng/mL
--- NOTE | 2018-08-30 19:28 | RADIOLOGY REPORT (SQ) ---
EXAM DESCRIPTION: CHEST SINGLE VIEW COMPLETED DATE/TIME: 08/30/2018 7:19 pm REASON FOR STUDY: altered mental status COMPARISON: 05/19/2015 EXAM PARAMETERS: NUMBER OF VIEWS: One view. TECHNIQUE: Single frontal radiographic view of the chest acquired. RADIATION DOSE: NA LIMITATIONS: None. FINDINGS: LUNGS AND PLEURA: Bibasilar parenchymal opacities right greater than left. No pneumothora x. MEDIASTINUM AND HILAR STRUCTURES: No masses. Contour normal. HEART AND VASCULAR STRUCTURES: Heart normal in size. Normal vasculature. BONES: No acute findings. HARDWARE: None in the chest. OTHER: No other significant finding. IMPRESSION: Bibasilar pneumonitis. TECHNICAL DOCUMENTATION: JOB ID: [id number] [employer]- All Rights Reserved Reading location - IP/workstation name: [email or web address]
[2018-08-30] MEDS ORDERED: CEFTRIAXONE 1 GM/D5W RTU 1 GM/50 ML RTUPB IV ONE (20:29)
--- NOTE | 2018-08-30 21:02 | ER Document Report ---
ED General - General Chief Complaint: Overdose Stated Complaint: POSSIBLE OVERDOSEE Time Seen by Provider: 08/30/18 17:33 TRAVEL OUTSIDE OF THE [place] IN LAST 30 DAYS: No - HPI Notes: Patient presents emergency department for evaluation via EMS. She is brought in for evaluation of potential overdose. She does have a history of multi-drug overdoses. She was brought in with propanolol and doxepin. There is some concern she took too much of it. We are unsure as to whether or not this was intentional. She has had multiple overdose attempts in the past. I can obtain no meaningful history from the patient herself. - Related Data Allergies/Adverse Reactions: amoxicillin trihydrate [From Augmentin] Allergy (Intermediate, Verified 01/18/17 04:49) Potassium Clavulanate * [From Augmentin] Allergy (Intermediate, Verified 01/18/17 04:49) Past Medical History - General Information source: Emergency [facility] Personnel - Social History Smoking Status: Unknown if Ever Smoked Family History: Hyperlipidemia, Malignancy Patient has suicidal ideation: Yes Patient has homicidal ideation: No Pulmonary Medical History: Reports: Hx COPD, Hx Pneumonia Renal/ Medical History: Reports: Hx Ovarian Cysts. Denies: Hx Peritoneal Dialysis Musculoskeletal Medical History: Reports Hx Musculoskeletal Deformity, Reports Hx Musculoskeletal Trauma Psychiatric Medical History: Reports: Hx Anxiety, Hx Attention Deficit Hyperactivity Disorder, Hx Bipolar Disorder, Hx Depression Traumatic Medical History: Reports: Hx Fractures, Hx Spine Fracture Past Surgical History: Reports: Hx Genitourinary Surgery - lap band 2009, Hx Orthopedic Surgery - kimberlyn in left foot - Immunizations Immunizations up to date: Yes Hx Diphtheria, Pertussis, Tetanus Vaccination: Yes - 2009 Review of Systems - Review of Systems -: Yes ROS unobtainable due to patient's medical condition Physical Exam - Vital signs Vitals: Resp BP Pulse Ox 20 120/81 98 08/30/18 17:30 08/30/18 17:30 08/30/18 17:30 - Notes Notes: Vital signs reviewed and as charted. Patient is drowsy but arousable. She intermittently screams obscenities. It is normocephalic and appears atraumatic. Pupils are 4 mm, round, sluggish but reactive. Oral mucosa is moist. Neck is supple, no meningismus. Heart is regular rate and rhythm, lungs are clear to auscultate bilaterally. Abdomen is soft, nontender, normoactive bowel sounds. Skin is warm and dry. Patient moves all 4 extremities spontaneously. GCS of 11. Course - Re-evaluation Re-evalutation: 08/30/18 21:05 Patient presents to the emergency department for evaluation. I did review this patient's chart. She has a history of multiple attempts at overdose, both intentional and unintentional. She was placed on a monitoring engineer, oxygen per nasal cannula. Laboratory investigations and imaging was ordered as above. As I do not have a clear time for ingestion, decision was made against any sort of gastric decontamination. Patient was maintained here and remained stable. Currently respiratory rate is 16 and nonlabored. She is 99%. Heart rate is in the 90s, blood pressure 125/86. She does however, remain drowsy. Laboratory investigations were positive for marijuana and cocaine. There is some concern as to whether or not she did overdose on a tricyclic medication. Her QRS duration is prolonged, but she does have a baseline bundle branch block. There is not a significant change in her QRS duration when compared to prior study. ABG revealed an alkalosis. Unfortunately, she is not back to her baseline. I am unsure as to whether or not she overdosed on other medications. Will contact medicine for further evaluation and care. 08/30/18 21:[address] Kee, he will accept the patient for further care. Patient will be admitted IM. Secondary to my strong suspicion that this was a self- inflicted, intentional overdose, mental cause harm, I will go ahead and fill out IVC paperwork. Patient will be admitted to IM for further care. - Vital Signs Vital signs: Temp Pulse Resp BP Pulse Ox 96.4 F L 19 125/86 H 98 08/30/18 21:01 08/30/18 21:01 08/30/18 21:01 08/30/18 21:01 - Laboratory Result Diagrams: 08/30/18 17:50 08/30/18 17:50 Laboratory results interpreted by me: 08/30/18 08/30/18 08/30/18 17:50 17:50 17:50 WBC 13.6 H RDW 17.0 H Seg Neutrophils % 89.4 H Lymphocytes % 6.4 L Absolute Neutrophils 12.2 H Carbonic Acid ABG pH ABG pCO2 ABG pO2 Carbon Dioxide 21 L Urine Protein 30 H Urine Ketones 20 H Urine Blood SMALL H Urine Nitrite POSITIVE H 08/30/18 18:06 WBC RDW Seg Neutrophils % Lymphocytes % Absolute Neutrophils Carbonic Acid 0.92 L ABG pH 7.47 H ABG pCO2 30.6 L ABG pO2 76.1 L Carbon Dioxide Urine Protein Urine Ketones Urine Blood Urine Nitrite - Diagnostic Test Radiology reviewed: Reports reviewed - Bibasilar pneumonitis - EKG Interpretation by Me Additional EKG results interpreted by me: 08/30/18 21:04 Sinus rhythm with a rate of 96 bpm. Normal axis. Right bundle branch block. No acute ST changes concerning for ischemia or infarction. No significant change compared to prior study of March 2018. Discharge - Discharge Clinical Impression: Suspect TCA overdose, Intentional overdose, Polysubstance abuse, Suicide at tempt, Cocaine abuse, Marijuana abuse Condition: Stable Disposition: ADMITTED OBSERVATION Admitting Provider: [place]ango (Hospitalist) Unit Admitted: [facility]
[2018-08-30 22:00] LABS: ACETAMINOPHEN < 10 ug/mL (10-30); SALICYLATE < 1.0 mg/dL (2.0-20.0)
[2018-08-30] MEDS ORDERED: IPRATROPIUM/ALBUTEROL 0.5-2.5 MG/3 ML AMPUL NEB PRN (22:14)
[2018-08-30] MEDS ORDERED: MAG HYDROX/AL HYDROX/SIMETH SUSP 30 ML UDCUP PO PRN (22:14)
[2018-08-30] MEDS ORDERED: DIAZEPAM 5 MG TABLET PO ONE (22:30)
[2018-08-30] MEDS ORDERED: ARIPIPRAZOLE 5 MG TABLET PO ONE (23:00)
[2018-08-31 02:31] LABS: HEMATOCRIT 38.3 % (36.0-47.0); HEMOGLOBIN 12.8 g/dL (12.0-15.5); MEAN CORPUSCULAR HEMOGLOBIN 29.5 pg (27.0-33.4); MEAN CORPUSCULAR HGB CONC 33.5 g/dL (32.0-36.0); MEAN CORPUSCULAR VOLUME 88 fl (80-97); PLATELET COUNT 218 10^3/uL (150-450); RED BLOOD COUNT 4.34 10^6/uL (3.72-5.28); RED CELL DISTRIBUTION WIDTH 17.4 % (11.5-14.0); WHITE BLOOD COUNT 9.9 10^3/uL (4.0-10.5)
[2018-08-31 02:41] LABS: ALANINE AMINOTRANSFERASE 22 U/L (9-52); ALBUMIN 3.3 g/dL (3.5-5.0); ALKALINE PHOSPHATASE 48 U/L (38-126); ANION GAP 6 (5-19); ASPARTATE AMINO TRANSFERASE 18 U/L (14-36); BILIRUBIN,DIRECT 0.3 mg/dL (0.0-0.4); BILIRUBIN,TOTAL 0.5 mg/dL (0.2-1.3); BLOOD UREA NITROGEN 9 mg/dL (7-20); CALCIUM 9.1 mg/dL (8.4-10.2); CARBON DIOXIDE 23 mmol/L (22-30); CHLORIDE 110 mmol/L (98-107); GLUCOSE 87 mg/dL (75-110); POTASSIUM 3.4 mmol/L (3.6-5.0); SODIUM 139.3 mmol/L (137-145); TOTAL PROTEIN 6.2 g/dL (6.3-8.2)
[2018-08-31] MEDS ORDERED: POTASSIUM CHLORIDE 10 MEQ CAPSULE.ER PO ONE (03:55)
--- NOTE | 2018-08-31 04:10 | PDOC H&P ---
History of Present Illness Admission Date/PCP: 08/30/18 22:14 Patient complains of: Altered mental status History of Present Illness: RHETT AVENDANO is a 38 year old female with a past medical history of polysubstance abuse, depression and multiple suicide attempts. Additional history is obtained by the record as she is obtunded. Brought to the emergency room for evaluation of altered mental status and potential overdose with discrepancy of propanolol and doxepin. She is found to have respiratory alkalosis, urine drug screen positive for cocaine and marijuana. She is referred to the hospitalist for admission. Patient does not appear in any acute distress, withdrawing from noxious stimuli, moving all 4 extremities, Past Medical History Pulmonary Medical History: Reports: Chronic Obstructive Pulmonary Disease (COPD), Pneumonia Psychiatric Medical History: Reports: Attention Deficit Hyperactivity Disorder, Bipolar Disorder, Depression, Substance Abuse Past Surgical History Past Surgical History: Reports: Orthopedic Surgery - [place] in left foot Social History Information Source: Emergency Med Personnel, [facility] Records Smoking Status: Current Every Day Smoker Cigarettes Packs Per Day: 1.5 Frequency of Alcohol Use: Rare Hx Recreational Drug Use: Yes Drugs: Cocaine, Marijuana Hx Prescription Drug Abuse: Yes - Benzodiazepines - Advance Directive Resuscitation Status: Full Code Family History Family History: Hyperlipidemia, Malignancy Parental Family History Reviewed: No - Unobtainable Children Family History Reviewed: No - Unobtainable Sibling(s) Family History Reviewed.: No - Unobtainable Medication/Allergy Home Medications: Dextroamphetamine/Amphetamine [Adderall XR 20 mg Capsule] 1 mg PO DAILY 04/21/16 Lorazepam 1 mg PO PRN PRN 04/21/16 Quetiapine Fumarate [Seroquel Xr] 400 mg PO DAILY 04/21/16 Allergies/Adverse Reactions: amoxicillin trihydrate [From Augmentin] Allergy (Intermediate, Verified 01/18/17 04:49) Potassium Clavulanate * [From Augmentin] Allergy (Intermediate, Verified 01/18/17 04:49) Review of Systems ROS unobtainable: Due to mental status - Unobtainable Physical Exam Vital Signs: Temp Pulse Resp BP Pulse Ox 98.1 F 84 21 H 106/60 100 08/31/18 00:21 08/31/18 02:00 08/31/18 00:21 08/31/18 00:21 08/31/18 00:21 Intake & Output 08/29/18 08/30/18 08/31/18 11:59 11:59 11:59 Intake Total 1050 Output Total 550 Balance 500 Weight 105.2 kg General appearance: PRESENT: cooperative, disheveled, well-developed, well- nourished. ABSENT: obese, severe distress Head exam: PRESENT: atraumatic, normocephalic Eye exam: PRESENT: conjunctiva pink, EOMI, PERRLA. ABSENT: scleral icterus Ear exam: PRESENT: normal external ear exam Mouth exam: PRESENT: moist, tongue midline Neck exam: ABSENT: carotid bruit, JVD, lymphadenopathy, thyromegaly Respiratory exam: PRESENT: clear to auscultation [place], symmetrical, tachypnea. ABSENT: rales, rhonchi, wheezes Cardiovascular exam: PRESENT: RRR. ABSENT: diastolic murmur, rubs, systolic murmur Pulses: PRESENT: normal dorsalis pedis pul Vascular exam: PRESENT: normal capillary refill GI/Abdominal exam: PRESENT: normal bowel sounds, soft. ABSENT: distended, guarding, mass, organolmegaly, rebound, tenderness Rectal exam: PRESENT: deferred Extremities exam: PRESENT: full ROM. ABSENT: calf tenderness, clubbing, pedal edema Neurological exam: PRESENT: altered, CN II-XII grossly intact. ABSENT: motor sensory deficit Psychiatric exam: PRESENT: flat affect, unusual affect Skin exam: PRESENT: dry, intact, warm. ABSENT: cyanosis, rash Results Laboratory Results: 08/31/18 02:15 08/31/18 02:15 08/30/18 08/30/18 08/30/18 17:50 17:50 17:50 WBC 13.6 H RBC 4.30 Hgb 12.7 Hct 37.9 MCV 88 MCH 29.4 MCHC 33.4 RDW 17.0 H Plt Count 215 Seg Neutrophils % 89.4 H Lymphocytes % 6.4 L Monocytes % 4.0 Eosinophils % 0.0 Basophils % 0.2 Absolute Neutrophils 12.2 H Absolute Lymphocytes 0.9 Absolute Monocytes 0.5 Absolute Eosinophils 0.0 Absolute Basophils 0.0 Carbonic Acid HCO3/H2CO3 Ratio ABG pH ABG pCO2 ABG pO2 ABG HCO3 ABG O2 Saturation ABG Base Excess FiO2 Sodium 137.2 Potassium 3.7 Chloride 107 Carbon Dioxide 21 L Anion Gap 9 BUN 12 Creatinine 0.52 Est GFR ( Amer) > 60 Est GFR (Non-Af Amer) > 60 Glucose 103 Calcium 9.1 Magnesium 1.9 Total Bilirubin 0.4 AST 18 ALT 20 Alkaline Phosphatase 61 Total Protein 6.5 Albumin 3.5 TSH Urine Color YELLOW Urine Appearance CLOUDY Urine pH 6.0 Ur Specific [place] 1.020 Urine Protein 30 H Urine Glucose (UA) NEGATIVE Urine Ketones 20 H Urine Blood SMALL H Urine Nitrite POSITIVE H Ur Leukocyte Esterase NEGATIVE Urine WBC (Auto) 8 Urine RBC (Auto) 2 08/30/18 08/30/18 08/31/18 17:50 18:06 02:15 WBC 9.9 RBC 4.34 Hgb 12.8 Hct 38.3 MCV 88 MCH 29.5 MCHC 33.5 RDW 17.4 H Plt Count 218 Seg Neutrophils % Lymphocytes % Monocytes % Eosinophils % Basophils % Absolute Neutrophils Absolute Lymphocytes Absolute Monocytes Absolute Eosinophils Absolute Basophils Carbonic Acid 0.92 L HCO3/H2CO3 Ratio 23:1 ABG pH 7.47 H ABG pCO2 30.6 L ABG pO2 76.1 L ABG HCO3 21.7 ABG O2 Saturation 96.1 ABG Base Excess -1.0 FiO2 ROOM AIR Sodium Potassium Chloride Carbon Dioxide Anion Gap BUN Creatinine Est GFR ( Amer) Est GFR (Non-Af Amer) Glucose Calcium Magnesium Total Bilirubin AST ALT Alkaline Phosphatase Total Protein Albumin TSH 0.54 Urine Color Urine Appearance Urine pH Ur Specific [place] Urine Protein Urine Glucose (UA) Urine Ketones Urine Blood Urine Nitrite Ur Leukocyte Esterase Urine WBC (Auto) Urine RBC (Auto) 08/31/18 02:15 WBC RBC Hgb Hct MCV MCH MCHC RDW Plt Count Seg Neutrophils % Lymphocytes % Monocytes % Eosinophils % Basophils % Absolute Neutrophils Absolute Lymphocytes Absolute Monocytes Absolute Eosinophils Absolute Basophils Carbonic Acid HCO3/H2CO3 Ratio ABG pH ABG pCO2 ABG pO2 ABG HCO3 ABG O2 Saturation ABG Base Excess FiO2 Sodium 139.3 Potassium 3.4 L Chloride 110 H Carbon Dioxide 23 Anion Gap 6 BUN 9 Creatinine 0.56 Est GFR ( Amer) > 60 Est GFR (Non-Af Amer) > 60 Glucose 87 Calcium 9.1 Magnesium Total Bilirubin 0.5 AST 18 ALT 22 Alkaline Phosphatase 48 Total Protein 6.2 L Albumin 3.3 L TSH Urine Color Urine Appearance Urine pH Ur Specific [place] Urine Protein Urine Glucose (UA) Urine Ketones Urine Blood Urine Nitrite Ur Leukocyte Esterase Urine WBC (Auto) Urine RBC (Auto) 08/30/18 08/30/18 17:50 17:50 Creatine Kinase 74 CK-MB (CK-2) 0.91 Troponin I < 0.012 Impressions: Chest X-Ray 08/30/18 17:34 IMPRESSION: Bibasilar pneumonitis. Assessment and Plan - Diagnosis (1) Suicidal overdose Qualifiers: Encounter type: initial encounter Qualified Code(s): T50.902A - Poisoning by unspecified drugs, medicaments and biological substances, intentional self- harm, initial encounter Is this a current diagnosis for this admission?: Yes Plan: Presumed suicidal attempt by medication given history. Poison control recommends supportive care given unknown agents. IVC placed, follow-up mental health consult (2) Respiratory alkalosis Is this a current diagnosis for this admission?: Yes Plan: Secondary to hyperventilation. Sedation as needed (3) Encephalopathy acute Is this a current diagnosis for this admission?: Yes Plan: Secondary to #1, supportive care (4) Polysubstance abuse Is this a current diagnosis for this admission?: Yes Plan: Cessation counseling when alert, supportive care - Time Time Spent with patient: 35 or more minutes - Inpatient Certification Medical Necessity: Need Close Monitoring Due to Risk of Patient Decompensation
[2018-08-31] MEDS: HEPARIN SOD (PORCINE) 5,000 UNIT/ML 1 ML SYRINGE SUBCUT SCH ×3 (05:22→21:27)
[2018-08-31] MEDS: ARIPIPRAZOLE 5 MG TABLET PO SCH (09:14)
[2018-08-31] MEDS: DIAZEPAM 5 MG TABLET PO SCH ×2 (09:14→21:27)
[2018-08-31] MEDS: NICOTINE 21 MG/24 HR PATCH.TD24 TD SCH (09:14)
--- NOTE | 2018-08-31 13:11 | EKG REPORT ---
SEVERITY:- ABNORMAL ECG - SINUS RHYTHM IVCD, CONSIDER ATYPICAL RBBB : Confirmed by: Bernard Macedo 31-Aug-2018 13:11:21
--- NOTE | 2018-08-31 13:11 | EKG REPORT ---
SEVERITY:- ABNORMAL ECG - SINUS RHYTHM IVCD, CONSIDER ATYPICAL RBBB : Confirmed by: Bernard Macedo 31-Aug-2018 13:11:01
--- NOTE | 2018-08-31 13:11 | EKG REPORT ---
SEVERITY:- ABNORMAL ECG - SINUS RHYTHM RIGHT BUNDLE BRANCH BLOCK : Confirmed by: Bernard Macedo 31-Aug-2018 13:11:08
--- NOTE | 2018-08-31 14:09 | PSYCHOLOGICAL NOTE ---
Psych Note - Psych Note Date seen by psych provider: 08/31/18 Time seen by psych provider: 11:30 Psych Note: Reason for Consult: Overdose Consent permissions: Konrad Monique Patient presents to ER after possible overdose. EMS reports they were called to the home for taking "extra pills." Patient minimally engaged with clinician. She reports she took pills because she was "upset" at her boyfriend; however, patient started to mumble and it is unclear why she was upset. When asked if she wanted to when she took the pills, she reports "not really...yes and no." When asked if she is glad she survived she reports; "ya...I would be if everyone would stop bothering me every 5 minutes, but ya." Patient confirms she has medication management with [facility] and denies therapeutic services. Patient is alert and orientated to person, place, time and circumstance. Mood is irritable with congruent affect. Patient arrived after intentional overdose. Patient minimally engages with clinician. At this time the patient did not demonstrated any behaviors indicating she is responding to internal stimuli and patient does not have a history of psychosis. no medication recommendations at this time 1. 304.20 (F14.20) Cocaine Use Disorder 2. 304.30 (F12.20) Cannabis Use Disorder 3. 305.70 (F15.10) Amphetamine Use Disorder per history 4. 296.80 (F31.9) Unspecified Bipolar Disorder per history Impression\\plan: Patient is recommended for overnight mental health observation. Patient presents after intentional overdose however today discloses she did it while she was upset and overall did not want to . Patient is very irritable and only minimally engages so continued observation is recommended to ensure mental health stability and to develop plan of care. Patient will be reevaluated. Dr. Lu was consulted to care management of this patient; attending physician is agreement with recommendations and disposition.
--- NOTE | 2018-08-31 17:38 | PDOC PROGRESS REPORT ---
Subjective Progress Note for:: 08/31/18 Subjective:: RHETT AVENDANO is a 38 year old female with a past medical history of polysubstance abuse, depression and multiple suicide attempts who was admitted 08/30/18 for intentional overdose. The patient was seen on morning rounds. She is found resting in bed comfortably on room air. She was sleeping soundly but woke easily when I said her name, but groaned "what do you want? just leave me alone" when I asked how she was feeling. She then pulled the blanket over her head and refused to answer any further questions. ROS is further limited secondary to patient's participation. She appears comfortable and not in any acute distress. No concerns per nursing. Reason For Visit: AMS OD SI Physical Exam Vital Signs: Temp Pulse Resp BP Pulse Ox 97.4 F 79 16 106/58 L 97 08/31/18 15:03 08/31/18 15:03 08/31/18 15:03 08/31/18 15:03 08/31/18 15:03 Intake & Output 08/30/18 08/31/18 09/01/18 06:59 06:59 06:59 Intake Total 1050 576 Output Total 675 Balance 375 576 Weight 104.2 kg General appearance: PRESENT: no acute distress, disheveled, obese, well- developed, well-nourished. ABSENT: cooperative Head exam: PRESENT: atraumatic, normocephalic Eye exam: PRESENT: conjunctiva pink, EOMI, PERRLA. ABSENT: scleral icterus Ear exam: PRESENT: normal external ear exam Mouth exam: PRESENT: moist, tongue midline Respiratory exam: PRESENT: clear to auscultation [place], symmetrical, unlabored. ABSENT: rales, rhonchi, wheezes Cardiovascular exam: PRESENT: RRR. ABSENT: diastolic murmur, rubs, systolic murmur Vascular exam: PRESENT: normal capillary refill Rectal exam: PRESENT: deferred Extremities exam: PRESENT: full ROM. ABSENT: calf tenderness, clubbing, pedal edema Neurological exam: PRESENT: CN II-XII grossly intact, other - Arousable. ABSENT: motor sensory deficit Psychiatric exam: PRESENT: flat affect Skin exam: PRESENT: dry, intact, warm. ABSENT: cyanosis, rash Additional comments: Exam limited secondary to patient participation. Results Laboratory Results: 08/31/18 02:15 08/31/18 02:15 08/30/18 08/30/18 08/30/18 17:50 17:50 17:50 WBC 13.6 H RBC 4.30 Hgb 12.7 Hct 37.9 MCV 88 MCH 29.4 MCHC 33.4 RDW 17.0 H Plt Count 215 Seg Neutrophils % 89.4 H Lymphocytes % 6.4 L Monocytes % 4.0 Eosinophils % 0.0 Basophils % 0.2 Absolute Neutrophils 12.2 H Absolute Lymphocytes 0.9 Absolute Monocytes 0.5 Absolute Eosinophils 0.0 Absolute Basophils 0.0 Carbonic Acid HCO3/H2CO3 Ratio ABG pH ABG pCO2 ABG pO2 ABG HCO3 ABG O2 Saturation ABG Base Excess FiO2 Sodium 137.2 Potassium 3.7 Chloride 107 Carbon Dioxide 21 L Anion Gap 9 BUN 12 Creatinine 0.52 Est GFR ( Amer) > 60 Est GFR (Non-Af Amer) > 60 Glucose 103 Calcium 9.1 Magnesium 1.9 Total Bilirubin 0.4 AST 18 ALT 20 Alkaline Phosphatase 61 Total Protein 6.5 Albumin 3.5 TSH Urine Color YELLOW Urine Appearance CLOUDY Urine pH 6.0 Ur Specific [place] 1.020 Urine Protein 30 H Urine Glucose (UA) NEGATIVE Urine Ketones 20 H Urine Blood SMALL H Urine Nitrite POSITIVE H Ur Leukocyte Esterase NEGATIVE Urine WBC (Auto) 8 Urine RBC (Auto) 2 08/30/18 08/30/18 08/31/18 17:50 18:06 02:15 WBC 9.9 RBC 4.34 Hgb 12.8 Hct 38.3 MCV 88 MCH 29.5 MCHC 33.5 RDW 17.4 H Plt Count 218 Seg Neutrophils % Lymphocytes % Monocytes % Eosinophils % Basophils % Absolute Neutrophils Absolute Lymphocytes Absolute Monocytes Absolute Eosinophils Absolute Basophils Carbonic Acid 0.92 L HCO3/H2CO3 Ratio 23:1 ABG pH 7.47 H ABG pCO2 30.6 L ABG pO2 76.1 L ABG HCO3 21.7 ABG O2 Saturation 96.1 ABG Base Excess -1.0 FiO2 ROOM AIR Sodium Potassium Chloride Carbon Dioxide Anion Gap BUN Creatinine Est GFR ( Amer) Est GFR (Non-Af Amer) Glucose Calcium Magnesium Total Bilirubin AST ALT Alkaline Phosphatase Total Protein Albumin TSH 0.54 Urine Color Urine Appearance Urine pH Ur Specific [place] Urine Protein Urine Glucose (UA) Urine Ketones Urine Blood Urine Nitrite Ur Leukocyte Esterase Urine WBC (Auto) Urine RBC (Auto) 08/31/18 02:15 WBC RBC Hgb Hct MCV MCH MCHC RDW Plt Count Seg Neutrophils % Lymphocytes % Monocytes % Eosinophils % Basophils % Absolute Neutrophils Absolute Lymphocytes Absolute Monocytes Absolute Eosinophils Absolute Basophils Carbonic Acid HCO3/H2CO3 Ratio ABG pH ABG pCO2 ABG pO2 ABG HCO3 ABG O2 Saturation ABG Base Excess FiO2 Sodium 139.3 Potassium 3.4 L Chloride 110 H Carbon Dioxide 23 Anion Gap 6 BUN 9 Creatinine 0.56 Est GFR ( Amer) > 60 Est GFR (Non-Af Amer) > 60 Glucose 87 Calcium 9.1 Magnesium Total Bilirubin 0.5 AST 18 ALT 22 Alkaline Phosphatase 48 Total Protein 6.2 L Albumin 3.3 L TSH Urine Color Urine Appearance Urine pH Ur Specific [place] Urine Protein Urine Glucose (UA) Urine Ketones Urine Blood Urine Nitrite Ur Leukocyte Esterase Urine WBC (Auto) Urine RBC (Auto) 08/30/18 08/30/18 17:50 17:50 Creatine Kinase 74 CK-MB (CK-2) 0.91 Troponin I < 0.012 Impressions: Chest X-Ray 08/30/18 17:34 IMPRESSION: Bibasilar pneumonitis. Assessment and Plan - Diagnosis (1) Suicidal ideation Is this a current diagnosis for this admission?: Yes Plan: The patient presented with altered mental status and known intentional overdose of Doxepin with reported intent of trying to sleep. Patient is placed in IVC status. Mental health services consulted. Continue the patient's home dose of Abilify. One-to-one sitter for safety. (2) Tricyclic antidepressant overdose of undetermined intent Qualifiers: Encounter type: initial encounter Qualified Code(s): T43.014A - Poisoning by tricyclic antidepressants, undetermined, initial encounter Is this a current diagnosis for this admission?: Yes Plan: Patient took an unknown quantity of doxepin. Poison control was contacted; recommend supportive care. Patient is now on IVC status. Follow-up mental health consultation. Gentle IV fluids. Serial EKGs to trend QTc interval. (3) Encephalopathy acute Is this a current diagnosis for this admission?: Yes Plan: Secondary to #1, supportive care (4) Polysubstance abuse Is this a current diagnosis for this admission?: Yes Plan: Cessation counseling when alert, supportive care (5) DVT prophylaxis Is this a current diagnosis for this admission?: Yes Plan: Heparin (6) Tobacco dependence Is this a current diagnosis for this admission?: Yes Plan: Cessation counseling when alert, nicotine replacement therapies provided. - Time Time Spent with patient: 15-24 minutes Medications reviewed and adjusted accordingly: Yes Within: within 24 hours - once cleared by psych services; disposition per their recommendation
[2018-08-31] MEDS ORDERED: CEFTRIAXONE 1 GM/D5W RTU 1 GM/50 ML RTUPB IV SCH (18:00)
[2018-08-31] MEDS ORDERED: CEFTRIAXONE 1 GM/D5W RTU 1 GM/50 ML RTUPB IV ONE (18:17)
[2018-09-01] MEDS: HEPARIN SOD (PORCINE) 5,000 UNIT/ML 1 ML SYRINGE SUBCUT SCH (06:06)
[2018-09-01] MEDS: NICOTINE 21 MG/24 HR PATCH.TD24 TD SCH (09:43)
[2018-09-01] MEDS: ARIPIPRAZOLE 5 MG TABLET PO SCH (09:43)
[2018-09-01] MEDS: DIAZEPAM 5 MG TABLET PO SCH (09:43)
--- NOTE | 2018-09-01 10:20 | PDOC DISCHARGE SUMMARY ---
General - Admit/Disc Date/PCP Admission Date/Primary Care Provider: 08/30/18 22:14 Discharge Date: 09/01/18 - Discharge Diagnosis (1) Suicidal ideation Is this a current diagnosis for this admission?: Yes Summary: The patient presented with altered mental status and known intentional overdose of Doxepin with reported intent of trying to sleep. Patient was placed in IVC status. Mental health services consulted and subsequently recommended rescinding IVC status. No new medication recommendations per mental health services. They do advised that the patient would benefit from CBT therapy. On day of discharge, the patient states that she is feeling well; denies current thoughts of suicidal ideation. She is advises that she is going to discharge to home in the care of her parents who will be here to pick her up after mandaeism today. She agrees that she would benefit from therapy services and states her intent to discuss this with her mental health provider at her outpatient follow-up. She is discharged home in stable condition and recommended to follow-up as described as above, otherwise return to the emergency department immediately for any concerning symptoms. (2) Tricyclic antidepressant overdose of undetermined intent Is this a current diagnosis for this admission?: Yes Summary: Patient took an unknown quantity of doxepin. Poison control was contacted; recommend supportive care. Patient was placed in IVC status with mental health consultation; received gentle IV fluids and serial EKGs to trend QTc interval which has returned to normal. (3) Encephalopathy acute Is this a current diagnosis for this admission?: Yes Summary: Resolved; secondary to #2. (4) Polysubstance abuse Is this a current diagnosis for this admission?: Yes Summary: Cessation counseling provided; recommended patient follow-up with [facility] and see to discuss need for therapy and substance abuse counseling services. (5) Tobacco dependence Is this a current diagnosis for this admission?: Yes Summary: Smoking cessation encouraged; NicoDerm prescription transmitted to patient's outpatient pharmacy. (6) DVT prophylaxis Is this a current diagnosis for this admission?: Yes - Additional Information Resuscitation Status: Full Code Discharge Diet: Regular Discharge Activity: Activity As Tolerated, Balance Activity w/Rest, Slowly Increase Activity Prescriptions: Nicotine [Nicoderm 21 mg/24 Hr Transderm Patch] 1 each TD DAILY #30 [id number] Home Medications: Doxepin HCl 300 mg PO QHS 08/31/18 Propranolol HCl [Inderal 10 mg Tablet] 10 mg PO Q8HP PRN 08/31/18 Risperidone Microspheres [Risperdal Consta Inj 50 mg/2 ml Disp.syrin] 50 mg IM [id number] 08/31/18 Zolpidem Tartrate [Ambien] 10 mg PO HSP PRN 08/31/18 Nicotine [Nicoderm 21 mg/24 Hr Transderm Patch] 1 each TD DAILY #30 patch.[email or web address] 09/01/18 History of Present Illness History of Present Illness: Per H&P by Dr. Kee: RHETT AVENDANO is a 38 year old female with a past medical history of polysubstance abuse, depression and multiple suicide attempts. Additional history is obtained by the record as she is obtunded. Brought to the emergency room for evaluation of altered mental status and potential overdose with discrepancy of propanolol and doxepin. She is found to have respiratory alkalosis, urine drug screen positive for cocaine and marijuana. She is referred to the hospitalist for admission. Patient does not appear in any acute distress, withdrawing from noxious stimuli, moving all 4 extremities, Physical Exam Vital Signs: Temp Pulse Resp BP Pulse Ox 97.3 F 77 16 92/44 L 97 09/01/18 07:42 09/01/18 07:42 09/01/18 07:42 09/01/18 07:42 09/01/18 07:42 Intake & Output 08/31/18 09/01/18 09/02/18 06:59 06:59 06:59 Intake Total 1050 2327 Output Total 675 Balance 375 2327 Weight 104.2 kg 105.3 kg General appearance: PRESENT: no acute distress, cooperative, disheveled, obese, well-developed, well-nourished Head exam: PRESENT: atraumatic, normocephalic Eye exam: PRESENT: conjunctiva pink, EOMI, PERRLA. ABSENT: scleral icterus Ear exam: PRESENT: normal external ear exam Mouth exam: PRESENT: moist, tongue midline Neck exam: ABSENT: carotid bruit, JVD, lymphadenopathy, thyromegaly Respiratory exam: PRESENT: clear to auscultation [place], symmetrical, unlabored. ABSENT: rales, rhonchi, wheezes Cardiovascular exam: PRESENT: RRR. ABSENT: diastolic murmur, rubs, systolic murmur Pulses: PRESENT: normal dorsalis pedis pul Vascular exam: PRESENT: normal capillary refill GI/Abdominal exam: PRESENT: normal bowel sounds, soft. ABSENT: distended, guarding, mass, organolmegaly, rebound, tenderness Rectal exam: PRESENT: deferred Extremities exam: PRESENT: full ROM. ABSENT: calf tenderness, clubbing, pedal edema Neurological exam: PRESENT: alert, awake, oriented to person, oriented to place, oriented to time, oriented to situation, CN II-XII grossly intact. ABSENT: motor sensory deficit Psychiatric exam: PRESENT: appropriate affect, normal mood. ABSENT: homicidal ideation, suicidal ideation Skin exam: PRESENT: dry, intact, warm. ABSENT: cyanosis, rash Results Laboratory Results: 08/31/18 02:15 08/31/18 02:15 08/30/18 17:50 Catheterized Urine Urine Culture - Final Escherichia Coli 08/30/18 08/30/18 17:50 17:50 Creatine Kinase 74 CK-MB (CK-2) 0.91 Troponin I < 0.012 Impressions: Chest X-Ray 08/30/18 17:34 IMPRESSION: Bibasilar pneumonitis. Qualifiers - * PATIENT BEING DISCHARGED WITH ANY OF THE FOLLOWING DIAGNOSIS: No Plan Discharge Plan: Discharged home with self-care. Follow-up with primary care provider within 1 week. Follow-up with [facility] seen within 1 week. Recommend outpatient CBT therapy services. Stop smoking. Return to emergency department as needed for concerning symptoms. Time Spent: Less than 30 Minutes
[2018-09-01 12:07] VITALS: BP 97/61
== END 2018-09-01 13:10 | disposition home or self-care (01) | DRG 917 ==
LOC: ER 17:22 → EH 21:32 → OBSVTOIN 22:14 → 3W 08-31 00:11
PROVIDERS: ADMIT Internal Medicine; ATTEND Internal Medicine
PROC: 3E0F73Z Introduction of Anti-inflammatory into Respiratory Tract, Via Natural or Artificial Opening (ICD-10-PCS; principal; 2018-08-30)
DX: T43.012A Poisoning by tricyclic antidepressants, intentional self-harm, initial encounter (principal); G92 Toxic encephalopathy; F90.9 Attention-deficit hyperactivity disorder, unspecified type; F31.9 Bipolar disorder, unspecified; F17.210 Nicotine dependence, cigarettes, uncomplicated; F41.9 Anxiety disorder, unspecified; F14.10 Cocaine abuse, uncomplicated; F12.10 Cannabis abuse, uncomplicated; Z88.1 Allergy status to other antibiotic agents; Z79.899 Other long term (current) drug therapy; Z80.9 Family history of malignant neoplasm, unspecified
CPT/HCPCS: 36415; 51702; 71045; 80053; 80307; 81001; 81025; 82550; 82553; 82803; 83735; 84443; 84484; 85025; 85027; 85610; 85730; 87040; 87086; 87088; 87186; 93005; 93010; 96361; 96365; 99285; J0696; J1644; J7030

== ENCOUNTER 2019-06-27 16:01 | Emergency (ER) | payer OTHER, MEDICAID ==
--- NOTE | 2019-06-27 16:10 | ER Document Report ---
ED Medical Screen (RME) - General Chief Complaint: Vaginal Bleeding Stated Complaint: HEAVY VAGINAL BLEEDING Time Seen by Provider: 06/27/19 16:06 Notes: 38-year-old female presents for heavy vaginal bleeding for 3 weeks. Patient states she has associated blood clots that are approximately baseball sized. Patient states previous to these 3 weeks she usually has periods that last approximately 5 days every month. Patient also has associated pelvic cramping similar to menstrual cramps. Patient also states she feels dizzy when she stands up. Patient denies any chest pain, dyspnea, nausea/vomiting. Abdomen soft nontender. I have greeted and performed a rapid initial assessment of this patient. A comprehensive ED assessment and evaluation of the patient, analysis of test results and completion of the medical decision making process with be conducted by additional ED providers. TRAVEL OUTSIDE OF THE [place] IN LAST 30 DAYS: No - Related Data Allergies/Adverse Reactions: amoxicillin trihydrate [From Augmentin] Allergy (Intermediate, Verified 01/18/17 04:49) Potassium Clavulanate * [From Augmentin] Allergy (Intermediate, Verified 01/18/17 04:49) amoxicillin Allergy (Verified 06/27/19 16:06) Past Medical History Pulmonary Medical History: Reports: Hx COPD, Hx Pneumonia Renal/ Medical History: Reports: Hx Ovarian Cysts. Denies: Hx Peritoneal Dialysis Musculoskeltal Medical History: Reports Hx Musculoskeletal Deformity, Reports Hx Musculoskeletal Trauma Psychiatric Medical History: Reports: Hx Anxiety, Hx Attention Deficit Hyperactivity Disorder, Hx Bipolar Disorder, Hx Depression Traumatic Medical History: Reports: Hx Fractures, Hx Spine Fracture Past Surgical History: Reports: Hx Genitourinary Surgery - lap band 2009, Hx Orthopedic Surgery - kimberlyn in left foot - Immunizations Immunizations up to date: Yes Hx Diphtheria, Pertussis, Tetanus Vaccination: Yes - 2009
[2019-06-27 17:03] LABS: APPEARANCE,URINE CLOUDY; BILIRUBIN,URINE NEGATIVE (NEGATIVE); COLOR,URINE AMBER; GLUCOSE, URINE NEGATIVE (NEGATIVE); KETONES,URINE NEGATIVE (NEGATIVE); PROTEIN,URINE 100 mg/dL (NEGATIVE); URINE SPECIFIC GRAVITY 1.021
--- NOTE | 2019-06-27 17:20 | ER Document Report ---
ED General - General Chief Complaint: Vaginal Bleeding Stated Complaint: HEAVY VAGINAL BLEEDING Time Seen by Provider: 06/27/19 16:06 Primary Care Provider: ABHI JACKSON MD [ACTIVE PROVISIONAL STAFF] - 07/01/19 10:00 am Mode of Arrival: Ambulatory Information source: Patient Notes: This 38-year-old female G0, P0 presents to the emergency department with complaints of heavy vaginal bleeding. She reports she has been having heavy bleeding for 3 weeks. She reports large blood clots. Patient reports that she has been going through at least a tampon an hour in addition to adult diapers every 2-3 hours. She reports usually her menses will last 3 to 4 days. She complains of some abdominal cramping. Also complains of some pain with void denies urinary frequency. Denies fever nausea vomiting diarrhea. Does not have a primary care provider. She reports she feels dizzy at times and is very very tired. She reports she is supposed to go to the [facility] but her ID has . Reports history of bipolar and ADD. TRAVEL OUTSIDE OF THE [place] IN LAST 30 DAYS: No - HPI Onset: Other - 3 weeks Onset/Duration: Persistent Quality of pain: Cramping Associated symptoms: None Exacerbated by: Denies Relieved by: Denies Similar symptoms previously: No Recently seen / treated by doctor: No - Related Data Allergies/Adverse Reactions: amoxicillin trihydrate [From Augmentin] Allergy (Intermediate, Verified 01/18/17 04:49) Potassium Clavulanate * [From Augmentin] Allergy (Intermediate, Verified 01/18/17 04:49) amoxicillin Allergy (Verified 06/27/19 16:06) Home Medications: mood stablizer shot monthly. Past Medical History - General Information source: Patient Last Menstrual Period: 3 weeks G0, P0 - Social History Smoking Status: Current Every Day Smoker Cigarette use (# per day): Yes Chew tobacco use (# tins/day): No Frequency of alcohol use: None Drug Abuse: None Family History: Hyperlipidemia, Malignancy Patient has suicidal ideation: No Patient has homicidal ideation: No Pulmonary Medical History: Reports: Hx COPD, Hx Pneumonia Renal/ Medical History: Reports: Hx Ovarian Cysts. Denies: Hx Peritoneal Dialysis Musculoskeletal Medical History: Reports Hx Musculoskeletal Deformity, Reports Hx Musculoskeletal Trauma Psychiatric Medical History: Reports: Hx Anxiety, Hx Attention Deficit Hyperactivity Disorder, Hx Bipolar Disorder, Hx Depression Traumatic Medical History: Reports: Hx Fractures, Hx Spine Fracture Past Surgical History: Reports: Hx Genitourinary Surgery - lap band 2009, Hx Orthopedic Surgery - kimberlyn in left foot - Immunizations Immunizations up to date: Yes Hx Diphtheria, Pertussis, Tetanus Vaccination: Yes - 2009 Review of Systems - Review of Systems Notes: Review HPI for review of systems., All other systems negative Physical Exam - Vital signs Vitals: Temp Pulse Resp BP Pulse Ox 97.9 F 85 15 114/50 L 100 06/27/19 16:37 06/27/19 16:37 06/27/19 16:37 06/27/19 16:37 06/27/19 16:37 - Notes Notes: PHYSICAL EXAMINATION: GENERAL: Well-appearing and in no acute distress HEAD: Atraumatic, normocephalic. EYES: Pupils equal round and reactive to light, extraocular movements intact, sclera anicteric, conjunctiva are normal. ENT: nares patent, oropharynx clear without exudates. Moist mucous membranes. NECK: Normal range of motion, supple without lymphadenopathy LUNGS: CTAB and equal. No wheezes rales or rhonchi. HEART: Regular rate and rhythm without murmurs ABDOMEN: Soft, no tenderness. No guarding, no rebound BACK: Denies pain EXTREMITIES: Normal range of motion, NEUROLOGICAL: Cranial nerves grossly intact. Normal sensory/motor exams. PSYCH: Normal mood, normal affect. SKIN: Warm, Dry, normal turgor, no rashes or lesions noted - Genitourinary External exam: Normal Speculum exam: Normal Vaginal bleeding: Moderate Bimanuel exam: Normal Course - Re-evaluation Re-evalutation: 06/27/19 17:55 H&H 8.4 and 24.9. Patient is dizzy reports she becomes very tired very easily. Pelvic completed. Dr. Jackson consulted. She advises prescription for iron Colace and TXA. She also scheduled the appointment for the patient next Sunday at 10:00. Patient was instructed on all plans. Verbalized understanding. 1 unit of packed blood cells ordered. Transvaginal US 06/27/19 16:08 IMPRESSION: Left ovarian cysts, including a 5.5 cm cyst, as described. These are simple cysts. Recommend follow-up ultrasound in 6 to 12 weeks. Laboratory 06/27/19 06/27/1906/27/20 16:30 17:05 17:05 WBC 7.8 RBC 3.05 L Hgb 8.4 L Hct 24.9 L MCV 82 MCH 27.5 MCHC 33.7 RDW 16.8 H Plt Count 365 Lymph % (Auto) 29.7 [place] % (Auto) 7.2 Eos % (Auto) 1.3 Baso % (Auto) 0.7 Absolute Neuts (auto) 4.8 Absolute Lymphs (auto) 2.3 Absolute Monos (auto) 0.6 Absolute Eos (auto) 0.1 Absolute Basos (auto) 0.1 Seg Neutrophils % 61.1 Sodium 136.9 L Potassium 4.2 Chloride 104 Carbon Dioxide 24 Anion Gap 9 BUN 13 Creatinine 0.70 Est GFR ( Amer) > 60 Est GFR (MDRD) Non-Af > 60 Glucose 94 Calcium 8.8 Total Bilirubin 0.2 Direct Bilirubin 0.0 Neonat Total Bilirubin Not Reportable Neonat Direct Bilirubin Not Reportable Neonat Indirect Bili Not Reportable AST 17 ALT 11 Alkaline Phosphatase 60 Total Protein 6.6 Albumin 3.6 Serum HCG, Qual Urine Color GERALD Urine Appearance CLOUDY Urine pH 6.0 Ur Specific [facility] 1.021 Urine Protein 100 H Urine Glucose (UA) NEGATIVE Urine Ketones NEGATIVE Urine Blood LARGE H Urine Nitrite (Reflex) POSITIVE H Urine Bilirubin NEGATIVE Urine Urobilinogen 2.0 H Leukocyte Esterase Rfl NEGATIVE Urine RBC (Auto) >182 Urine Bacteria (Auto) 2+ Urine WBC (Reflex) 28 Squamous Epi Cells Auto 3 Urine Mucus (Auto) MANY Urine Ascorbic Acid NEGATIVE Crossmatch 06/27/19 06/27/19 17:05 17:05 WBC RBC Hgb Hct MCV MCH MCHC RDW Plt Count Lymph % (Auto) [place] % (Auto) Eos % (Auto) Baso % (Auto) Absolute Neuts (auto) Absolute Lymphs (auto) Absolute Monos (auto) Absolute Eos (auto) Absolute Basos (auto) Seg Neutrophils % Sodium Potassium Chloride Carbon Dioxide Anion Gap BUN Creatinine Est GFR ( Amer) Est GFR (MDRD) Non-Af Glucose Calcium Total Bilirubin Direct Bilirubin Neonat Total Bilirubin Neonat Direct Bilirubin Neonat Indirect Bili AST ALT Alkaline Phosphatase Total Protein Albumin Serum HCG, Qual NEGATIVE Urine Color Urine Appearance Urine pH Ur Specific [facility] Urine Protein Urine Glucose (UA) Urine Ketones Urine Blood Urine Nitrite (Reflex) Urine Bilirubin Urine Urobilinogen Leukocyte Esterase Rfl Urine RBC (Auto) Urine Bacteria (Auto) Urine WBC (Reflex) Squamous Epi Cells Auto Urine Mucus (Auto) Urine Ascorbic Acid Crossmatch See Detail 06/27/19 21:00 Blood infusion. Patient sleeping arouses easily without problems or complaints. 06/27/19 Patient instructed on medication sent to her pharmacy. She reports she still has her insurance so she will be able to chart picker the medications without problems. She was instructed on the medication and signs and symptoms of allergic reaction. She verbalized understanding to this. She was also instructed on the importance of follow-up with Dr. Jackson on Sunday. - Vital Signs Vital signs: Temp Pulse Resp BP Pulse Ox 98.4 F 74 15 99/63 L 99 06/27/19 23:03 06/27/19 23:03 06/27/19 23:03 06/27/19 23:03 06/27/19 23:03 - Laboratory Result Diagrams: 06/27/19 17:05 06/27/19 17:05 Laboratory results interpreted by me: 06/27/19 06/27/19 06/27/19 16:30 17:05 17:05 RBC 3.05 L Hgb 8.4 L Hct 24.9 L RDW 16.8 H Sodium 136.9 L Urine Protein 100 H Urine Blood LARGE H Urine Nitrite (Reflex) POSITIVE H Urine Urobilinogen 2.0 H Crossmatch 06/27/19 17:05 RBC Hgb Hct RDW Sodium Urine Protein Urine Blood Urine Nitrite (Reflex) Urine Urobilinogen Crossmatch See Detail - Diagnostic Test Radiology reviewed: Image reviewed, Reports reviewed - Consults dr jackson Time consulted: 17:55 Reason for consultation: 06/27/19 19:10 vaginal bleeding H/H 8.4/24.9 Consulted provider: follow-up in office Procedures - Pelvic Exam Pelvic exam Cultures obtained: No Wet prep obtained: No Herpes culture obtained: No POC sent to lab: No Foreign body removed: No Bimanual exam performed: Yes Witnessed by: [email or web address] Notes: 06/27/19 19:11 moderate bleeding noted, no clots Discharge - Discharge Clinical Impression: Vagina bleeding, BLOOD TRANSFUSION Menorrhagia Qualifiers: Menorrhagia type: premenopausal Qualified Code(s): N92.4 - Excessive bleeding in the premenopausal period Ovarian cyst Qualifiers: Laterality: bilateral Qualified Code(s): N83.201 - Unspecified ovarian cyst, right side Condition: Stable Disposition: HOME, SELF-CARE Instructions: Menorrhagia ([facility]), Ovarian Cyst ([facility]), Stool Softener ([facility]), Vaginal Bleeding ([facility]) Additional Instructions: *You have been evaluated for vaginal bleeding, Menorrhagia, ovarian cyst *You have received a blood transfusion *Take medication as prescribed- The prescriptions are for iron, stool softener and TXA which will help with your bleeding *Follow up with Dr. Jackson Sunday at 1000 *Avoid sexual intercourse until follow up *Return to ED for worsening condition, changes, needs, increased vaginal bleeding, concerns Prescriptions: Docusate Sodium [Colace 100 mg Capsule] 100 mg PO DAILY #30 capsule Ferrous Sulfate 325 mg PO BID #30 tablet. Tranexamic Acid [Lysteda] 1,300 mg PO TID #30 tablet Referrals: ABHI JACKSON MD [ACTIVE PROVISIONAL STAFF] - 07/01/19 10:00 am
[2019-06-27 17:35] LABS: ABSOLUTE BASOPHILS # (AUTO) 0.1 10^3/uL (0.0-0.2); ABSOLUTE EOSINOPHILS # (AUTO) 0.1 10^3/uL (0.0-0.6); ABSOLUTE LYMPHOCYTES (AUTO) 2.3 10^3/uL (0.5-4.7); ABSOLUTE MONOCYTES (AUTO) 0.6 10^3/uL (0.1-1.4); ABSOLUTE NEUT (AUTO) 4.8 10^3/uL (1.7-8.2); BASOPHILS % (AUTO) 0.7 % (0-2); EOSINOPHILS % (AUTO) 1.3 % (0-6); HEMATOCRIT 24.9 % (36.0-47.0); HEMOGLOBIN 8.4 g/dL (12.0-15.5); LYMPHOCYTES % (AUTO) 29.7 % (13-45); MEAN CORPUSCULAR HEMOGLOBIN 27.5 pg (27.0-33.4); MEAN CORPUSCULAR HGB CONC 33.7 g/dL (32.0-36.0); MEAN CORPUSCULAR VOLUME 82 fl (80-97); MONOCYTES % (AUTO) 7.2 % (3-13); PLATELET COUNT 365 10^3/uL (150-450); RED BLOOD COUNT 3.05 10^6/uL (3.72-5.28); RED CELL DISTRIBUTION WIDTH 16.8 % (11.5-14.0); SEGMENTED NEUTROPHILS % (AUTO) 61.1 % (42-78); TOTAL CELLS COUNTED % (AUTO) 100 %; WHITE BLOOD COUNT 7.8 10^3/uL (4.0-10.5)
--- NOTE | 2019-06-27 17:48 | RADIOLOGY REPORT (SQ) ---
EXAM DESCRIPTION: U/S NON OB PEL TV W/DOPPLER COMPLETED DATE/TIME: 06/27/2019 5:06 pm REASON FOR STUDY: heavy vag bleed w/ clots x 3 weeks COMPARISON: None. TECHNIQUE: Dynamic and static grayscale images acquired of the pelvis via transvaginal approach and recorded on PACS. Additional selected color Doppler and spectral images recorded. LIMITATIONS: None. FINDINGS: UTERUS: Contour normal. No mass. ENDOMETRIAL STRIPE: Prominent, heterogeneous. CERVIX: 2.1 cm. RIGHT OVARY AND DOPPLER: Normal size. No worrisome masses. Normal arterial vascular flow without evid ence for torsion. LEFT OVARY AND DOPPLER: Normal size. No worrisome masses. Normal arterial vascular flow without evide nce for torsion. Multiple cysts. The largest measures 5.5 x 2.3 x 3.1 cm. FREE FLUID: None noted. OTHER: No other significant finding. MEASUREMENTS: UTERUS: 7 x 4.4 x 5.4 cm. ENDOMETRIAL STRIPE: 11 mm. RIGHT OVARY: 4.1 x 1.9 x 2.5 cm. LEFT OVARY: 4.4 x 3.7 x 4.1 cm. IMPRESSION: Left ovarian cysts, including a 5.5 cm cyst, as described. These are simple cysts. Rec ommend follow-up ultrasound in 6 to 12 weeks. TECHNICAL DOCUMENTATION: JOB ID: [id number] [employer] All Rights Reserved Rev-10/05 Reading location - IP/workstation name: [email or web address]
[2019-06-27 17:58] LABS: ALBUMIN 3.6 g/dL (3.5-5.0); ALKALINE PHOSPHATASE 60 U/L (38-126); ANION GAP 9 (5-19); ASPARTATE AMINO TRANSFERASE 17 U/L (14-36); BILIRUBIN,TOTAL 0.2 mg/dL (0.2-1.3); BLOOD UREA NITROGEN 13 mg/dL (7-20); CALCIUM 8.8 mg/dL (8.4-10.2); CARBON DIOXIDE 24 mmol/L (22-30); CHLORIDE 104 mmol/L (98-107); GLUCOSE 94 mg/dL (75-110); POTASSIUM 4.2 mmol/L (3.6-5.0); TOTAL PROTEIN 6.6 g/dL (6.3-8.2)
[2019-06-27] MEDS ORDERED: NORMAL SALINE 250 ML IV PRN (18:08)
[2019-06-27 23:07] VITALS: BP 99/63
== END 2019-06-27 23:02 | disposition home or self-care (01) ==
LOC: ER 16:01
DX: N92.4 Excessive bleeding in the premenopausal period (principal); N83.201 Unspecified ovarian cyst, right side; F17.210 Nicotine dependence, cigarettes, uncomplicated; J44.9 Chronic obstructive pulmonary disease, unspecified; Z88.0 Allergy status to penicillin
CPT/HCPCS: 86900; 86901; 36415; 87086; 36430; 86850; 84703; 85025; 87088; 80053; 81001; 87186; 86920; 76830; 93976; P9016; J7050; 96360; 96361; 99284